=== PATIENT | male | born 1935 | race Caucasian/White ===

== ENCOUNTER 2017-08-31 17:17 | Inpatient (IN) | payer OTHER ==
[~2017-08-31] VITALS: Ht 162.6 cm; Wt 106.2 kg
[~2017-08-31 17:17] MED LIST: ALBUTEROL2.5 MG/0.5 INH/SOL; ALLOPURINOL300 M1 PO; CARVEDILOL12.5 M1 PO; COLCHICINE0.6 M2 PO; DIGOXIN125 MCG PO; FLOMAX0.4 M1 PO; LASIX20 M1 PO; LOSARTAN POTASS25 M1 PO; METFORMIN HCL500 M3 PO; OMEPRAZOLE20 M2 PO; SYMBICORT 16010.2 GM INH; TRAMADOL HCL50 M1 PO; WARFARIN SODIUM2 M1 PO
--- NOTE | 2017-08-31 17:32 | ED GENERAL ADULT ---
History of Present Illness General Chief Complaint: Dyspnea (COPD, CHF, Other) Stated Complaint: BIBA SOB/CP Source: patient, family, old records Exam Limitations: clinical condition Vital Signs & Intake/Output Vital Signs & Intake/Output Vital Signs Date Time Temp Pulse Resp B/P B/P Pulse O2 O2 Flow FiO2 Mean Ox Delivery Rate 08/31 1731 94 Nasal 4.0L Cannula 08/31 1728 70 22 130/70 96 Nasal 4.0L Cannula Allergies Coded Allergies: Iodinated Contrast- Oral and IV Dye (IODINATED CONTRAST MEDIA - ORAL AND) (HIVES , DYSPNEA 06/01/16) ampicillin (From UNASYN) (RASH 06/01/16) sulbactam (From UNASYN) (RASH 06/01/16) Reconcile Medications Albuterol Sulfate 2.5 MG/0.5 ML VIAL.NEB 1 Vial INH/DAVIDSON PRN COPD/ASTHMA ( Reported) Allopurinol 300 MG TABLET 1 TAB PO PRN GOUT (Reported) Amlodipine Besylate 5 MG TABLET 1 TAB PO QPM BP (Reported) Ascorbate Calcium (Vitamin C) 500 MG TABLET 1 TAB PO DAILY SUPPLEMENT ( Reported) Brimonidine Tartrate 0.2 % DROPS 2 DROP OU QPM GLAUCOMA (Reported) Budesonide/Formoterol Fumarate (Symbicort 160-4.5 Mcg Inhaler) (Unknown Strength ) HFA.AER.AD (Unknown Dose) INH PRN COPD/ASTHMA (Reported) Calcium (Elemental-Fr Calcarb) (Calcium Carbonate) (Unknown Strength) TABLET ( Unknown Dose) PO PRN GI (Reported) Carvedilol 12.5 MG TABLET 0.5 TAB PO BID HEART/BP (Reported) Cholecalciferol (Vitamin D3) (Vitamin D) 1,000 UNIT TABLET 1 TAB PO DAILY SUPPLEMENT (Reported) Colchicine 0.6 MG TABLET 1 TAB PO PRN GOUT (Reported) Cyanocobalamin (Vitamin B-12) 1,000 MCG TABLET 1 TAB PO DAILY SUPPLEMENT ( Reported) Digoxin 125 MCG TABLET 1 TAB PO Q48 HEART . Furosemide (Lasix) 20 MG TABLET 1 TAB PO DAILY CHF . Losartan Potassium 25 MG TABLET 1 TAB PO QAM BP (Reported) Lutein 20 MG CAPSULE 1 CAP PO DAILY SUPPLEMENT (Reported) Metformin HCl 500 MG TABLET 1 TAB PO BID DM (Reported) Mometasone/Formoterol (Dulera 100 Mcg/5 Mcg Inhaler) 100 MCG-5 MCG/ACTUATION HFA.AER.AD 1-2 PUF INH AD COPD/ASTHMA (Reported) Multiple Vitamin (Multivitamins) 1 EACH TABLET 1 TAB PO DAILY SUPPLEMENT ( Reported) Manawa-3 Fatty Acids (Manawa-3) 1,000 MG CAPSULE 1 CAP PO DAILY SUPPLEMENT ( Reported) Simvastatin (Simvastatin*) 40 MG TABLET 1 TAB PO QPM CHOLESTEROL (Reported) Tamsulosin HCl (Flomax) 0.4 MG CAP.ER.24H 1 CAP PO QPM PROSTATE (Reported) Timolol (Betimol) 0.5 % DROPS 1 GTT OU QPM GLAUCOMA (Reported) Tramadol HCl 50 MG TABLET 2 TAB PO Q6P PRN PAIN (Reported) Warfarin Sodium 4 MG TABLET 1 TAB PO Tuesday BLOOD THINNER ( Reported) Warfarin Sodium (Coumadin) 2 MG TABLET 1 TAB PO SUNTUTHURSAT BLOOD THINNER ( Reported) Triage Note: BIBA FROM HOME, REPORTS TO EMS THAT HE HAD SOB X 3 HOURS AND REPORTED MIDSTERNAL CHEST PAIN. PATIENT RECENTLY DIAGNOSED WITH CHF AND PRESCRIBED WATER PILL BUT HAS NOT TAKEN. PER EMS PATIENT WAS HYPERTENSIVE ON SCENE, 1 DOSE OF NITRO GIVEN EN ROUTE WITH RELIEF, 1 ALBUTEROL TREATMENT GIVEN EN ROUTE WITH RELIEF WELL. PATIENT TRANSFERRED TO ER MD SHREE MATHEW AT BEDSIDE. RESPIRATORY AT [facility] FOR EVAL. Triage Nurses Notes Reviewed? yes Onset: Abrupt Duration: hour(s): (FEW) Timing: single episode today Injury Environment: home Severity: moderate, severe No Modifying Factors: none Associated Symptoms: EPIGASTRIC DISCOMFORT HPI: This is an 82-year-old male with history of hypertension, CHF, A. fib on Eliquis , BiPAP use at night who presents by EMS from home for chief complaint of severe shortness of breath. Patient was found to be hypoxic and cyanotic with an oxygen saturation of 76% on room air. Patient states the symptoms started suddenly this afternoon. However the family notices that he had some lower sternum weeks swelling that had increased. On Tuesday [facility] told him he needed to be back on Lasix but hasn't gotten it yet. No fevers or chills. He does report some mild yellow sputum production in the last 2 days. Appetite has been normal. Patient denies any chest pain but had some epigastric heaviness. He was found hypotensive in the field with a blood pressure of 230/120. Patient was given a DuoNeb and a subungual nitroglycerin with relief. By the time he gets to the ER he states he is feeling much better. Past History Travel History Traveled to [place] past 21 day No Medical History Any Pertinent Medical History? see below for history Neurological: NONE EENT: glaucoma Cardiovascular: AFIB, hypertension, hyperlipidemia Respiratory: asthma Gastrointestinal: NONE Hepatic: NONE Renal: chronic kidney disease Musculoskeletal: gout, osteoarthritis Psychiatric: NONE Endocrine: diabetes Blood Disorders: NONE Cancer(s): NONE History of MRSA: No History of VRE: No History of CDIFF: No Surgical History Surgical History: non-contributory Psychosocial History Who do you live with Spouse Services at Home None What is your primary language Thai Tobacco Use: Quit >30 days ago ETOH Use: denies use Family History Hx Contributory? No Review of Systems Review of Systems Constitutional: Denies: chills, fever. EENTM: Reports: no symptoms. Respiratory: Reports: cough, short of breath, sputum production. Cardiovascular: Denies: chest pain, peripheral edema. GI: Reports: abdominal pain. Genitourinary: Reports: no symptoms. Musculoskeletal: Denies: back pain. Skin: Denies: rash. Neurological/Psychological: Denies: confusion. Hematologic/Endocrine: Denies: bruising, bleeding, polyuria, polydipsia. Immunologic/Allergic: Denies: splenectomy. All Other Systems: Reviewed and Negative Physical Exam Physical Exam General Appearance: well developed/nourished, alert, awake, anxious, moderate distress, severe distress Head: atraumatic, normal appearance Eyes: Bilateral: normal appearance, PERRL, EOMI. Ears, Nose, Throat: normal pharynx, hearing grossly normal Neck: normal inspection, supple, full range of motion Respiratory: decreased breath sounds, crackles (POSTERIOR BASES), wheezing ( upper gimenez), respiratory distress Cardiovascular: regular rate/rhythm, normal peripheral pulses, systolic murmur Peripheral Pulses: 2+ radial (R), 2+ radial (L) Gastrointestinal: normal bowel sounds, soft, non-tender, NONTENDER ON EXAMINATION Back: normal inspection Extremities: pedal edema (2+ BILATERALLY) Neurologic/Psych: no motor/sensory deficits, awake, alert Skin: pallor Core Measures ACS in differential dx? Yes CVA/TIA Diagnosis: No Sepsis Present: No Sepsis Focused Exam Completed? No Progress Differential Diagnoses I considered the following diagnoses in my evaluation of the patient: [AMI, CHF, FLASH PULMONARY EDEMA, PE, COPD, PNEUMONIA] Plan of Care: Orders Procedure Date/time Status US-EXT BILAT VENOUS DOPPLER 08/31 1852 Active ECHOCARDIOGRAM 08/31 1852 Active ED Holding Orders 08/31 1840 Active Admit to inpatient 08/31 1840 Active Vital Signs 08/31 1840 Active Code Status 08/31 1840 Active ARTERIAL BLOOD GAS (GEN) 08/31 174 Complete TROPONIN LEVEL 08/31 174 Complete PARTIAL THROMBOPLASTIN TIME 08/31 174 Complete PROTHROMBIN TIME 08/31 174 Complete COMPREHENSIVE METABOLIC PANEL 08/31 174 Complete CBC WITHOUT DIFFERENTIAL 09/01 1739 Complete B-TYPE NATRIURETIC PEP (BNP) 09/01 1739 Complete EKG 08/31 1717 Active Laboratory Tests 08/31/17 174: Anion Gap 12, Estimated GFR 45 L, BUN/Creatinine Ratio 22.0, Glucose 144 H, Calcium 9.4, Total Bilirubin 0.5, AST 24, ALT 27, Alkaline Phosphatase 122, Troponin I 0.03, Hoq-C-Nehuotvjgvw Pept 1870 H, Total Protein 7.1, Albumin 3.8, Globulin 3.3, Albumin/Globulin Ratio 1.2, PT 28.6 H, INR 2.60 H, APTT 45 H, CBC w Diff NO MAN DIFF REQ, RBC 5.19, MCV 89.3, MCH 28.8, MCHC 32.3 L, RDW 14.1 , MPV 9.8, Gran % 79.2 H, Lymphocytes % 10.3 L, Monocytes % 8.0, Eosinophils % 2.2, Basophils % 0.3, Absolute Granulocytes 11.3 H, Absolute Lymphocytes 1.5, Absolute Monocytes 1.1 H, Absolute Eosinophils 0.3, Absolute Basophils 0 08/31/171727: pH 7.32 L, pCO2 52 H, pO2 98, HCO3 28, ABG O2 Sat (Measured) 97.0, Carboxyhemoglobin 0.8 L, O2 Concentration % 4L, O2 Delivery Method NC, Phlebotomy Draw Site RIGHT RADIAL Discussed with Dr. Perez and Dr. Flower, will go to telemetry. Chest x-ray at this time pending. ABG does not show significant hypoxia. Recent echocardiogram shows significant aortic stenosis. Diagnostic Imaging: Viewed by Me: Radiology Read, Ultrasound. Discussed w/RAD: Radiology Read, Ultrasound. Radiology Impression: PATIENT: CHRISTINA MEYER PRESENT AGE: 82 PATIENT ACCOUNT NO: [id number] : 36 LOCATION: [facility] ORDERING PHYSICIAN: Taylor Wilburn MD SERVICE DATE: 08/31/17 EXAM TYPE: CARD - ECHOCARDIOGRAM CHRISTINA MEYER Age: 82 : 1935 Gender: M Exam Date: 08/31/2017 18:54 Exam Location: ER Ht (in): 64 Wt (lb): 247 BSA: 2.31 BP: 153 / 84 Ordering Physician: Taylor Wilburn Referring Physician: Taylor Wilburn Technologist: Moe Cristina RDCS Room Number: 10 Indications: CHEST PAIN Rhythm: Atrial fibrillation Technical Quality: technically difficult, Fair FINDINGS Left Ventricle Normal size left ventricle. Left ventricular wall thickness increased. Normal left ventricular ejection fraction estimated at 55-60%. Right Ventricle Right ventricle not well visualized. Right Atrium Right atrium not well visualized, grossly normal. Left Atrium Moderate left atrial dilatation. Mitral Valve Mild thickening/ calcification of the anterior mitral valve leaflet. Mitral annular calcification. Aortic Valve Diffuse thickening of the aortic valve cusps with reduced excursion. Severe aortic stenosis. Tricuspid Valve Tricuspid valve not well visualized. Pulmonic Valve Pulmonic valve not well visualized. Pericardium No pericardial effusion. Great Vessels Normal size aortic root and proximal ascending aorta. CONCLUSIONS 1. This was a technically difficult and limited examination due to the patient's body habitus and clinical status. 2. Significant fibrocalcific degeneration is present in the aortic valve with evidence of severe aortic stenosis (PG 36 mmHg; MG 24 mmHg; DERRICK 0.9 cm2). 3. Thickening and calcification of the mitral leaflets is present with mild to moderate anular calcification and moderate left atrial enlargement. 4. There is no significant pericardial fluid present 5. The left ventricular chamber size and systolic function are normal. Mild to moderate concentric LVH is present. Complete wall motion assessment was not possible due to the quality of the images obtained. 6. The right heart structures were not optimally assessed. The RV systolic could not be accurately assessed on this examination. Lissette Perez M.D. ( Electronically Signed) Final Date: 01 September 2017 13: 03 MEASUREMENTS (Male / Female) Normal Values 2D ECHO LV Diastolic Diameter PLAX 4.7 cm 4.2 - 5.9 / 3.9 - 5.3 cm LV Systolic Diameter PLAX 3.4 cm 2.1 - 4.0 cm LV Fractional Shortening PLAX 27.7 % 25 - 46 % LV Ejection Fraction 2D Teich 53.7 % IVS Diastolic Thickness 1.5 cm LVPW Diastolic Thickness 1.5 cm LV Relative Wall Thickness 0.6 LVOT Diameter 2.2 cm Aortic Root Diameter 2.4 cm LA Systolic Diameter LX 4.8 cm 3.0 - 4.0 / 2.7 - 3.8 cm LV Ejection Fraction MOD BP 67.3 % >= 55 % LV Cardiac Index MOD BP 2545.7 cm /min m LV Diastolic Length 4C 7.9 cm 6.9 - 10.3 cm LV Diastolic Area 4C 32.1 cm LV Diastolic Volume MOD 4C 107.0 cm LV Ejection Fraction MOD 4C 66.4 % LV Stroke Volume MOD 4C 71.0 cm LV Cardiac Index MOD 4C 2582.1 cm /min m LV Systolic Length 4C 6.3 cm LV Systolic Area 4C 16.3 cm LV Systolic Volume MOD 4C 36.0 cm LV Ejection Fraction MOD 2C 69.4 % LV Cardiac Index MOD 2C 2473.0 cm / min m LV Diastolic Volume 4C AL 111.0 cm 85 - 139 / 69 - 109 cm LV Systolic Volume 4C AL 36.0 cm LV Ejection Fraction 4C AL 67.6 % LV Stroke Volume 4C AL 75.0 cm LV Cardiac Index 4C AL 2727.2 cm / min m LV Ejection Fraction 2C AL 70.5 % LV Cardiac Index 2C AL 2573.7 cm /min m Ascending Aorta Diameter 3.2 cm DOPPLER AV Peak Velocity 299.0 cm/s AV Peak Gradient 35.8 mmHg AV Mean Velocity 228.0 cm/s AV Mean Gradient 24.0 mmHg AV Velocity Time Integral 73.7 cm LVOT Peak Velocity 82.0 cm/s LVOT Peak Gradient 2.7 mmHg LVOT Mean Velocity 44.0 cm/s LVOT Mean Gradient 1.0 mmHg LVOT Velocity Time Integral 14.5 cm LVOT Stroke Volume 55.1 cm LVOT Cardiac Index 2004.6 cm /min m AV Area Cont Eq vti 0.7 cm AV Area Cont Eq pk 1.0 cm Mitral E Point Velocity 131.0 cm/s MV Deceleration Time 289.0 ms PV Peak Velocity 65.2 cm/s PV Peak Gradient 1.7 mmHg DICTATED BY: Ankita Perez MD DATE/TIME DICTATED:09/01/171302 [facility] ATTENDANT:TESSA DATE/TIME TRANSCRIBED:09/01/171302 CONFIDENTIAL, DO NOT COPY WITHOUT APPROPRIATE AUTHORIZATION. <Electronically signed in Other Vendor System> SIGNED BY: Ankita Perez MD 09/01/171302 CXR Impression: PATIENT: CHRISTINA MEYER PRESENT AGE: 82 PATIENT ACCOUNT NO: [id number] : 36 LOCATION: [facility] ORDERING PHYSICIAN: Taylor Wilburn MD SERVICE DATE: 08/31/17 EXAM TYPE: RAD - XRY-PORTABLE CHEST XRAY EXAMINATION: XR PORTABLE CHEST CLINICAL INFORMATION: 82-year-old man with dyspnea. COMPARISON: 05/11/2017 chest radiograph TECHNIQUE: Portable frontal view of the chest was obtained. FINDINGS: There is persistent prominence of the central pulmonary vasculature that could reflect chronic pulmonary hypertension. No overt pulmonary edema or focal airspace consolidation is identified. Moderate cardiomegaly is unchanged. There are no large pleural effusions. There is persistent elevation of the right hemidiaphragm. IMPRESSION: No radiographic evidence of an acute cardiopulmonary process. DICTATED BY: Joanne Owen MD DATE/TIME DICTATED:08/31/171821 [facility] ATTENDANT:TESSA DATE/TIME TRANSCRIBED:08/31/171821 CONFIDENTIAL, DO NOT COPY WITHOUT APPROPRIATE AUTHORIZATION. <Electronically signed in Other Vendor System> SIGNED BY: Joanne Owen MD 08/31/171826 Initial ED EKG: AFIB, LAFB Prior EKG: unchanged Rhythm Strip: atrial fibrillation Departure Departure Disposition: STILL A PATIENT Condition: Stable Clinical Impression Primary Impression: Flash pulmonary edema Secondary Impressions: Dyspnea, Hypertensive urgency, malignant, Hypoxia Referrals: Quique Flower MD (PCP/Family) Departure Forms: Customer Survey General Discharge Information Prescriptions: Current Visit Scripts Digoxin 1 TAB PO Q48 #30 TAB . Furosemide (Lasix) 1 TAB PO DAILY #30 TAB . Admission Note Spoke With: Quique Flower MD Documentation of Exam: Documentation of any treatments & extenuating circumstances including Concerns Regarding Discharge (functional status, medication knowledge or non-compliance, living conditions, etc.) that warrant an admission rather than observation: [ TELE MONITOR, CAREFUL DIURESIS, SERIAL EKG/TROPONIN, CARDIOLOGY CONSULT DR PEREZ, ECHOCARDIOGRAM, IV STEROIDS] Critical Care Note Critical Care Note Critical Care Time: 30-74 min
[2017-08-31] MEDS ORDERED: SIMVASTATIN40 M1 PO (17:50)
[2017-08-31 17:51] LABS: ABSOLUTE BASOPHIL COUNT 0 /CUMM (0.0-0.2); ABSOLUTE EOSINOPHIL COUNT 0.3 /CUMM (0.0-0.7); ABSOLUTE GRANULOCYTE CT 11.3 /CUMM (1.4-6.5); ABSOLUTE LYMPH COUNT 1.5 /CUMM (1.2-3.4); ABSOLUTE MONOCYTE COUNT 1.1 /CUMM (0.10-0.60); BASOPHIL % 0.3 % (0.0-2.0); EOSINOPHIL % 2.2 % (0-5); GRANULOCYTE % 79.2 % (42.2-75.2); HEMATOCRIT 46.3 % (42-52); MEAN CORPUSCULAR HGB 28.8 PG (27.0-31.0); MEAN CORPUSCULAR HGB CONC 32.3 G/DL (33.0-37.0); MEAN CORPUSCULAR VOLUME 89.3 FL (80.0-94.0); MEAN PLATELET VOLUME 9.8 FL (7.4-10.4); PLATELET COUNT 195 /CUMM (130-400); RBC DISTRIBUTION WIDTH 14.1 % (11.5-14.5); RED BLOOD CELL CT 5.19 /CUMM (4.70-6.10); WHITE BLOOD CELL COUNT 14.3 /CUMM (4.8-10.8)
[2017-08-31] MEDS ORDERED: AMLODIPINE BESYL5 M1 PO (17:51)
[2017-08-31] MEDS ORDERED: BRIMONIDINE TART5 M2 OU (17:52)
[2017-08-31] MEDS ORDERED: BETIMOL5 M1 OU (17:52)
[2017-08-31 18:01] LABS: PT 28.6 SEC (9.4-12.5); PTT 45 SEC (25-37)
[2017-08-31] MEDS ORDERED: CALCIUM CARBON600 M1 PO (18:09)
[2017-08-31] MEDS ORDERED: VITAMIN B-121000 MC3 PO (18:10)
[2017-08-31] MEDS ORDERED: LUTEIN20 M3 PO (18:10)
[2017-08-31] MEDS ORDERED: VITAMIN C500 M6 PO (18:10)
[2017-08-31] MEDS ORDERED: OMEGA-31000 M1 PO (18:11)
[2017-08-31] MEDS ORDERED: VITAMIN D1000 UNIT PO (18:11)
[2017-08-31] MEDS ORDERED: MULTIVITAMINS1 EAC9 PO (18:11)
[2017-08-31] MEDS ORDERED: DULERA 100 MCG/13 GM INH (18:12)
[2017-08-31] MEDS ORDERED: COUMADIN2 M1 PO (18:15)
[2017-08-31] MEDS ORDERED: WARFARIN SODIUM4 M1 PO (18:15)
--- NOTE | 2017-08-31 18:27 | RADIOLOGY REPORT ---
EXAMINATION: XR PORTABLE CHEST CLINICAL INFORMATION: 82-year-old man with dyspnea. COMPARISON: 05/11/2017 chest radiograph TECHNIQUE: Portable frontal view of the chest was obtained. FINDINGS: There is persistent prominence of the central pulmonary vasculature that could reflect chronic pulmonary hypertension. No overt pulmonary edema or focal airspace consolidation is identified. Moderate cardiomegaly is unchanged. There are no large pleural effusions. There is persistent elevation of the right hemidiaphragm. IMPRESSION: No radiographic evidence of an acute cardiopulmonary process.
--- NOTE | 2017-08-31 19:26 | PN- Att Addend ---
Attending Addendum Attending Brief Note This is an 82-year-old male with history of hypertension, CHF, A. fib on anticoag, BiPAP use at night who presents by EMS from home for chief complaint of severe shortness of breath. Patient was found to be hypoxic and cyanotic with an oxygen saturation of 76% on room air. Patient states the symptoms started suddenly this afternoon. However the family notices that he had some lower sternum weeks swelling that had increased. On Tuesday he went to see a doctor at the [facility] who told him he needed to be back on Lasix but hasn't gotten it yet. No fevers or chills. He does report some mild yellow sputum production in the last 2 days. Appetite has been normal. Patient denies any chest pain but had some epigastric heaviness. He was found hypertensive in the field with a blood pressure of 230/120. Patient was given a DuoNeb and a subungual nitroglycerin with relief. By the time he gets to the ER he states he is feeling much better. PROB LIST Controlled type 2 diabetes mellitus with complication, without long-term current use of insulin (HC Code) Paroxysmal atrial fibrillation (HC Code) AFIA on CPAP Used [employer]/ AUTOPAP 4-18 cm h20 with mirage quattro full face mask medium PLMD (periodic limb movement disorder)/ Severe 99/hr with arousal due to plm at 99, total plm 765 during sleep study Non-ischemic cardiomyopathy cardiac cath, LVEF 40 RV 50/20 PCW 23 rt dominant 60 percent prox D! Essential hypertension Unilateral vocal cord paralysis Hyperlipidemia, unspecified hyperlipidemia type Nonrheumatic aortic (valve) stenosis Stenosis of carotid artery, unspecified laterality Gout Gastroesophageal reflux disease, esophagitis presence not specified Moderate persistent asthma, uncomplicated Pulmonary HTN Nontoxic multinodular goiter Benign prostatic hyperplasia Cholelithiases Other psoriasis Osteoarthritis of knee, unspecified laterality, unspecified osteoarthritis type Intervertebral disc disorders with radiculopathy, lumbosacral region Pedal edema Glaucoma Microscopic hematuria HOME MEDS amLODIPine (NORVASC) 5 MG tablet carvedilol (COREG) 12.5 MG tablet digoxin (LANOXIN) 0.125 MG tablet losartan (COZAAR) 25 MG tablet rOPINIRole (REQUIP) 2 MG tablet simvastatin (ZOCOR) 10 MG tablet furosemide (LASIX) 20 MG tablet Past History Travel History Traveled to [place] past 21 day No Medical History Any Pertinent Medical History? see below for history Neurological: NONE EENT: glaucoma Cardiovascular: AFIB, hypertension, hyperlipidemia Respiratory: asthma Gastrointestinal: NONE Hepatic: NONE Renal: chronic kidney disease Musculoskeletal: gout, osteoarthritis Psychiatric: NONE Endocrine: diabetes Blood Disorders: NONE Cancer(s): NONE History of MRSA: No History of VRE: No History of CDIFF: No Surgical History Surgical History: non-contributory Psychosocial History Who do you live with Spouse Services at Home None What is your primary language Telugu Tobacco Use: Quit >30 days ago ETOH Use: denies use ROS as above Constitutional Denies: chills, diaphoresis, fever, malaise. EENTM Denies: visual changes, throat pain. Respiratory Denies: cough, short of breath, sputum production. Cardiovascular Reports: chest pain. Denies: edema, palpitations. GI Reports: abdominal pain, melena. Denies: dysuria, frequency. Musculoskeletal Reports: joint pain (CHRONIC). Psych/Neuro Denies: numbness, weakness. Endocrine Denies: unexplained weight gain, unexplained weight loss. Vital Signs Date Time Temp Pulse Resp B/P B/P Pulse O2 O2 Flow FiO2 Mean Ox Delivery Rate 08/31 1731 94 Nasal 4.0L Cannula 08/31 1728 70 22 130/70 96 Nasal 4.0L Cannula Laboratory Tests 08/31/17 1742: Anion Gap 12, Estimated GFR 45 L, BUN/Creatinine Ratio 22.0, Glucose 144 H, Calcium 9.4, Total Bilirubin 0.5, AST 24, ALT 27, Alkaline Phosphatase 122, Troponin I 0.03, Cke-N-Exqnurzwzjv Pept 1870 H, Total Protein 7.1, Albumin 3.8, Globulin 3.3, Albumin/Globulin Ratio 1.2, PT 28.6 H, INR 2.60 H, APTT 45 H, CBC w Diff NO MAN DIFF REQ, RBC 5.19, MCV 89.3, MCH 28.8, MCHC 32.3 L, RDW 14.1 , MPV 9.8, Gran % 79.2 H, Lymphocytes % 10.3 L, Monocytes % 8.0, Eosinophils % 2.2, Basophils % 0.3, Absolute Granulocytes 11.3 H, Absolute Lymphocytes 1.5, Absolute Monocytes 1.1 H, Absolute Eosinophils 0.3, Absolute Basophils 0 08/31/171727: pH 7.32 L, pCO2 52 H, pO2 98, HCO3 28, ABG O2 Sat (Measured) 97.0, Carboxyhemoglobin 0.8 L, O2 Concentration % 4L, O2 Delivery Method NC, Phlebotomy Draw Site RIGHT RADIAL Orders Procedure Date/time Status Patient Data 08/31 1858 Active US-EXT BILAT VENOUS DOPPLER 08/31 1852 Active ECHOCARDIOGRAM 08/31 1852 Active ED Holding Orders 08/31 1840 Active Admit to inpatient 08/31 1840 Active Vital Signs 08/31 1840 Active Code Status 08/31 1840 Active ARTERIAL BLOOD GAS (GEN) 08/31 174 Complete TROPONIN LEVEL 09/01 1739 Complete PARTIAL THROMBOPLASTIN TIME 09/01 1739 Complete PROTHROMBIN TIME 09/01 1739 Complete COMPREHENSIVE METABOLIC PANEL 09/01 1739 Complete CBC WITHOUT DIFFERENTIAL 09/01 1739 Complete B-TYPE NATRIURETIC PEP (BNP) 09/01 1739 Complete EKG 08/31 1717 Active General Appearance Alert, Oriented X3, Cooperative, No Acute Distress Skin No Rashes HEENT Atraumatic, PERRLA, EOMI, Mucous Membr. moist/pink Neck Supple, No JVD, No thryomegaly, +2 Carotid Pulse wo Bruit Lymphatic Cervical nl Cardiovascular Normal S1, Normal S2, IRREGULAR RYTHM, SYSTOLIC MURMUR PRESENT LungsMild wheezing and crackles Normal Air Movement Abdomen Normal Bowel Sounds, Soft, No Tenderness, No Hepatospenomegaly, No Masses Neurological Normal Gait, Normal Speech, Strength at 5/5 X4 Ext, Normal Tone, Sensation Intact, Cranial Nerves 3-12 NL Extremities No Clubbing, No Cyanosis, 1 plus Edema, Normal Pulses IMPRESSION Pt with Nonischemic CM with reduced EF, PAFIB on anticoag ?eloquis, HTN, Hyperlipedemia, AFIA on cpap, Sig djd, Morbid obesity, COPD with sig asthmatic component, GERD with sig hiatal hernia, Ventral hernia, pvd, gout history, PLM, On and off abd discomfort, aortic stenosis mild to mod, Chronic hoarse voice with vc paralysis (well compensated with no sig aspiration) (idiopathic) now comes in with Lower left chest discomfort with acute dyspnea with hypoxia with elevated BNP with prob mild acute diastolic and systolic chf with Aortic stenosis Chronic hypercarbic resp insuff due to AFIA and copd now with acute hypercarbic and hypoxic resp failure, - improved PT does have mod persistant asthma with mild wheezing with no fever or sputum or cough Chest / abd pain upon admission now better CKD AFib on anticoag Aortic stenosis NICM with low ef with mild chf AFIA with pulm htn PEdal edema mild due to amlodapine Sig HTN at times with pulm edema when his bp is more than 180 VC paralysis chronic DM REC Admit Lasix IV BP control with amlodapine, coreg and cozaar low dose COnt warfarin lower ext doppler HOld metformin and fsg and sliding scale cont Other out pt meds Solumedrol 40 qd for now Nebs duo neb prn Symbicort bid 2 puff If pain persists will get abd ultrasound CPAP at hs pt to use his machine if not use CPAP at 10 ECHO Cardio eval Dig level Will follow closely
--- NOTE | 2017-08-31 20:20 | ULTRASOUND REPORT ---
EXAMINATION: US TRIPLEX OF LOWER EXTREMITIES, BILATERAL CLINICAL INFORMATION: 82-year-old man with bilateral leg pain and edema. COMPARISON: None TECHNIQUE: Color-flow triplex imaging with spectral analysis and compression Doppler were performed on the lower extremities. FINDINGS: Respiratory variation, normal compression and augmented flow are noted throughout the lower extremities. The visualized common femoral vein, superficial femoral vein, profunda femoral vein, popliteal vein and midcalf peroneal and posterior tibial venous segments show no evidence of deep venous thrombosis. There is no Melendez's cyst. IMPRESSION: Normal triplex scan without evidence of deep venous thrombosis involving the lower extremities.
--- NOTE | 2017-08-31 20:43 | History & Physical ---
Myranda CANTOR,[facility] 08/31/172042: General Information and HPI MD Statement: I have seen and personally examined CHRISTINA MEYER and documented this H&P. The patient is a 82 year old M who presented with a patient stated chief complaint of [Shortness of Breath]. Source of Information: patient, family Exam Limitations: no limitations History of Present Illness: Mr. Meyer is an 82-year-old gentleman with past medical history significant for atrial fibrillation, aortic stenosis, hypertension, hyperlipidemia, COPD on BiPAP at night, gout, osteoarthritis, diabetes and idiopathic cardiomyopathy who was brought in by EMS for severe shortness of breath. Patient's shortness of breath started around this afternoon. Also reports epigastric/mid sternal chest discomfort without any radiation, precipitating, aggravating or relieving factors. Also denies any palpitations. Patient has baseline orthopnea at night and sleeps with a BiPAP but endorses slight worsening of orthopnea, no PND. Family also noticed slight worsening of lower extremity edema. Patient saw Dr. Rodriguez 2 weeks ago and echocardiogram was done at that time showing severe aortic stenosis but mute not ready to be replaced. Patient has a primary care physician at [place], who restarted the patient on Lasix but the patient has not picked up the prescription yet (patient not sure why he was on Lasix in the past). Patient also reports worsening of cough with yellow colored sputum production for the past 2 days. Denies any sore throat, runny nose, fever/chills or sick contacts. He was treated with antibiotics for bronchitis almost a month ago. Patient was found to be hypertensive to 230/120 and hypoxic with O2 sats of 76% on room air per EMS. He was given 1 dose of nitroglycerin and DuoNeb. Allergies/Medications Allergies: Coded Allergies: Iodinated Contrast- Oral and IV Dye (IODINATED CONTRAST MEDIA - ORAL AND) (HIVES , DYSPNEA 06/01/16) ampicillin (From UNASYN) (RASH 06/01/16) sulbactam (From UNASYN) (RASH 06/01/16) Home Med list Albuterol Sulfate 2.5 MG/0.5 ML VIAL.NEB 1 Vial INH/DAVIDSON PRN COPD/ASTHMA ( Reported) Allopurinol 300 MG TABLET 1 TAB PO PRN GOUT (Reported) Amlodipine Besylate 5 MG TABLET 1 TAB PO QPM BP (Reported) Ascorbate Calcium (Vitamin C) 500 MG TABLET 1 TAB PO DAILY SUPPLEMENT ( Reported) Brimonidine Tartrate 0.2 % DROPS 2 DROP OU QPM GLAUCOMA (Reported) Budesonide/Formoterol Fumarate (Symbicort 160-4.5 Mcg Inhaler) (Unknown Strength ) HFA.AER.AD (Unknown Dose) INH PRN COPD/ASTHMA (Reported) Calcium (Elemental-Fr Calcarb) (Calcium Carbonate) (Unknown Strength) TABLET ( Unknown Dose) PO PRN GI (Reported) Carvedilol 12.5 MG TABLET 0.5 TAB PO BID HEART/BP (Reported) Cholecalciferol (Vitamin D3) (Vitamin D) 1,000 UNIT TABLET 1 TAB PO DAILY SUPPLEMENT (Reported) Colchicine 0.6 MG TABLET 1 TAB PO PRN GOUT (Reported) Cyanocobalamin (Vitamin B-12) 1,000 MCG TABLET 1 TAB PO DAILY SUPPLEMENT ( Reported) Digoxin 125 MCG TABLET 1 TAB PO QPM HEART (Reported) Furosemide (Lasix) (Unknown Strength) TABLET (Unknown Dose) PO 2XW DIURETIC ( Reported) Losartan Potassium 25 MG TABLET 1 TAB PO QAM BP (Reported) Lutein 20 MG CAPSULE 1 CAP PO DAILY SUPPLEMENT (Reported) Metformin HCl 500 MG TABLET 1 TAB PO BID DM (Reported) Mometasone/Formoterol (Dulera 100 Mcg/5 Mcg Inhaler) 100 MCG-5 MCG/ACTUATION HFA.AER.AD 1-2 PUF INH AD COPD/ASTHMA (Reported) Multiple Vitamin (Multivitamins) 1 EACH TABLET 1 TAB PO DAILY SUPPLEMENT ( Reported) [place]-3 Fatty Acids ([place]-3) 1,000 MG CAPSULE 1 CAP PO DAILY SUPPLEMENT ( Reported) Simvastatin (Simvastatin*) 40 MG TABLET 1 TAB PO QPM CHOLESTEROL (Reported) Tamsulosin HCl (Flomax) 0.4 MG CAP.ER.24H 1 CAP PO QPM PROSTATE (Reported) Timolol (Betimol) 0.5 % DROPS 1 GTT OU QPM GLAUCOMA (Reported) Tramadol HCl 50 MG TABLET 2 TAB PO Q6P PRN PAIN (Reported) Warfarin Sodium 4 MG TABLET 1 TAB PO Tuesday BLOOD THINNER ( Reported) Warfarin Sodium (Coumadin) 2 MG TABLET 1 TAB PO [place] BLOOD THINNER ( Reported) Past History Travel History Traveled to [place] past 21 day No Medical History Neurological: NONE EENT: glaucoma Cardiovascular: AFIB, cardiomyopathy, hypertension, hyperlipidemia Respiratory: COPD Gastrointestinal: NONE Hepatic: NONE Renal: chronic kidney disease Musculoskeletal: gout, osteoarthritis Psychiatric: NONE Endocrine: diabetes Blood Disorders: NONE Cancer(s): NONE History of MRSA: No History of VRE: No History of CDIFF: No Surgical History Surgical History: non-contributory Past Family/Social History Psychosocial History Where do you live? Home Who Do You Live With? spouse Services at Home: None Smoking Status: Former Smoker ETOH Use: denies use Illicit Drug Use: denies illicit drug use Functional Ability ADLs Independent: dressing, eating, toileting, bathing. Ambulation: cane Review of Systems Review of Systems Constitutional: Reports: no symptoms. EENTM: Reports: no symptoms. Cardiovascular: Reports: orthopena, peripheral edema. Respiratory: Reports: cough, short of breath, sputum production, wheezing. GI: Reports: no symptoms. Genitourinary: Reports: no symptoms. Musculoskeletal: Reports: no symptoms. Skin: Reports: no symptoms. Neurological/Psychological: Reports: no symptoms. Hematologic/Endocrine: Reports: no symptoms. Immunologic/Allergic: Reports: no symptoms. All Other Systems: Reviewed and Negative Exam & Diagnostic Data Last 24 Hrs of Vital Signs/I&O Vital Signs Date Time Temp Pulse Resp B/P B/P Pulse O2 O2 Flow FiO2 Mean Ox Delivery Rate 08/31 2245 60 94 08/31 2229 98.0 63 22 154/82 94 Nasal 3.0L Cannula 08/31 2029 Nasal 4.0L Cannula 08/31 194 Nasal 4.0L Cannula 08/31 1920 74 18 153/84 96 Nasal 4.0L Cannula 08/31 1731 94 Nasal 4.0L Cannula 08/31 1728 70 22 130/70 96 Nasal 4.0L Cannula Physical Exam General Appearance Alert, Oriented X3, Cooperative, No Acute Distress Skin No Rashes, No Breakdown Cardiovascular Regular Rate, Normal S1, Normal S2, Systolic Murmur Lungs Bilateral expiratory wheezing, Crackles on lung bases Abdomen Normal Bowel Sounds, Soft, No Tenderness Extremities No Clubbing, No Cyanosis, trace pedal edema Last 24 Hrs of Labs/Doc: Laboratory Tests 08/31/17 1742: Anion Gap 12, Estimated GFR 45 L, BUN/Creatinine Ratio 22.0, Glucose 144 H, Calcium 9.4, Total Bilirubin 0.5, AST 24, ALT 27, Alkaline Phosphatase 122, Troponin I 0.03, Pau-I-Xivklbvlwmm Pept 1870 H, Total Protein 7.1, Albumin 3.8, Globulin 3.3, Albumin/Globulin Ratio 1.2, PT 28.6 H, INR 2.60 H, APTT 45 H, CBC w Diff NO MAN DIFF REQ, RBC 5.19, MCV 89.3, MCH 28.8, MCHC 32.3 L, RDW 14.1 , MPV 9.8, Gran % 79.2 H, Lymphocytes % 10.3 L, Monocytes % 8.0, Eosinophils % 2.2, Basophils % 0.3, Absolute Granulocytes 11.3 H, Absolute Lymphocytes 1.5, Absolute Monocytes 1.1 H, Absolute Eosinophils 0.3, Absolute Basophils 0, Digoxin 1.3 08/31/17 1728: pH 7.32 L, pCO2 52 H, pO2 98, HCO3 28, ABG O2 Sat (Measured) 97.0, Carboxyhemoglobin 0.8 L, O2 Concentration % 4L, O2 Delivery Method NC, Phlebotomy Draw Site RIGHT RADIAL Diagnostic Data CXR Results FINDINGS: There is persistent prominence of the central pulmonary vasculature that could reflect chronic pulmonary hypertension. No overt pulmonary edema or focal airspace consolidation is identified. Moderate cardiomegaly is unchanged. There are no large pleural effusions. There is persistent elevation of the right hemidiaphragm. IMPRESSION: No radiographic evidence of an acute cardiopulmonary process. Other Results US-EXT BILAT VENOUS DOPPLER IMPRESSION: Normal triplex scan without evidence of deep venous thrombosis involving the lower extremities. Assessment/Plan Assessment: Mr. Meyer is an 82-year-old gentleman with past medical history significant for atrial fibrillation, aortic stenosis, hypertension, hyperlipidemia, PVD, COPD, AFIA on CPAP at night, gout, osteoarthritis, diabetes and idiopathic cardiomyopathy who was brought in by EMS for severe shortness of breath. Problrm List 1. ?? CHF - shortness of breath, lower extremity edema, crackles on examination, and elevated proBNP(1870) but no JVD and chest x-ray does not show any signs of fluid overload. Shortness of breath could be multifactorial from AFIA, COPD, and Pulmonary HTN. Lower extremity edema could be secondary to PVD. 2. Aortic Stenosis 3. COPD Exacerbation 4. AFIA on CPAP at night 5. PVD 6. Chronic medical conditions - We'll let the patient to telemetry floor - Start the patient on IV Lasix 20 daily - Strict ins and outs - Daily weights - Troponin and EKG 3 to rule out ACS - Echocardiogram - Cardiology consult - Bilateral lower extremity Doppler negative for DVT. - IV Solu-Medrol 40 mg every 6. - TRC nebs - Supplemental oxygen as needed - Continue CPAP at night patient is a 40 - Continue home medications. DVT prophylaxis; on warfarin Patient is full code As Ranked By This Provider Problem List: 1. COPD 2. Dyspnea Core Measures/Misc (02/27) Acute Coronary Syndrome ACS Diagnosis: No Congestive Heart Failure Congestive Heart Failure Diagnosis Yes Cerebrovascular Accident CVA/TIA Diagnosis: No VTE (View Protocol) VTE Risk Factors Age>40 No Mechanical VTE Prophylaxis d/t N/A MechProphylax Ordered No VTE Pharm Prophylaxis d/t NA PharmProphylax ordered Sepsis (View protocol) Sepsis Present: No Jeffrey Hernandez 09/01/17 0002: Resident Review Statement Resident Statement: examined this patient, discussed with sourcing internship, agreed with sourcing internship, discussed with family, reviewed EMR data (avail), discussed with nursing , discussed with case mgmt, reviewed images, amended to note Other Findings: This is a 82-year-old male with past medical history significant for paroxysmal atrial fibrillation on digoxin, Coumadin, hypertension, hyperlipidemia, chronic kidney disease, gout, osteoarthritis, COPD, asthma, not on home oxygen, recently diagnosed ? CHF planning to start Lasix for worsening lower extremity swelling, type 2 diabetes mellitus, BPH, obstructive sleep apnea, using CPAP, nonischemic cardiomyopathy, carotid artery stenosis, GERD, pulmonary hypertension, nontoxic goiter presented to the emergency department for worsening shortness of breath for few hours. Patient reports that he has worsening shortness of breath for few hours before presenting to the emergency department. Also reports chest tightness and heaviness,with no chest pain, no radiation, no nausea, vomiting, sweating, diaphoresis. Patient has COPD, asthma, pulmonary hypertension, AFIA at baseline. He has shortness of breath on exertion is his baseline. However with worsening shortness of breath at rest he decided to come to the emergency room for further evaluation. He denies any fever, chills however he reports productive cough for last few days. He followed up with PCP Dr. Flower and Dr. Rodriguez last week, planning to start oral Lasix 20 daily for worsening lower extremity swelling. He was found to be hypoxic 76% on room air in the emergency room. He denies any sick contact exposure, travel history Patient denied any chest pain in the ER, palpitations, fever, chills, nausea, vomiting, abdominal pain, change in bladder or bowel habits, orthopnea, paroxysmal nocturnal dyspnea. He has remote history of smoking, quit 30 years ago, denies alcohol abuse, illicit drug abuse. ---- Vitals Afebrile, heart rate 74, respiratory rate 18, blood pressure 152/84, saturating at 96 on room air General Appearance Alert, Oriented X3, Cooperative, No Acute Distress Cardiovascular Regular Rate, Normal S1, Normal S2, Systolic Murmur Lungs Bilateral expiratory wheezing, Crackles on lung bases Abdomen Normal Bowel Sounds, Soft, No Tenderness Extremities No Clubbing, No Cyanosis, +1 pedal edema Labs Leukocytosis 14.3, hemoglobin 15, hematocrit 46, platelets 195 BUN 33 and creatinine 1.5 Chest x-ray no acute cardiopulmonary findings LFT and troponin neg 1. Acute on chronic respiratory insufficiency from COPD exacerbation, AFIA Patient presented with worsening shortness of breath, productive cough for a few days. He is tachypneic and hypoxic in the ER requiring 4 L oxygen supplementation. Chest x-ray no findings of pneumonia. However given his worsening shortness of breath and productive cough will manage him for COPD exacerbation. * Admit to telemetry * Continuous compliance monitor * Monitor vitals every shift * Provide supplemental oxygen * Continue CPAP at nighttime * Monitor for fever, leukocytosis trend * Received monitor blood 125 in the ER * Continue Solu-Medrol 40 daily * TRC nebs * Symbicort 2 puffs daily * Follow-up sputum cultures 2. Bilateral lower extremity swelling/questionable CHF Patient reports that he was evaluated by his PCP for bilateral lower extremity swelling. they were planning to start Lasix 20 mg daily. He has no JVD on exam. ProBNP elevated 1870. cxr unremarkable. * IV Lasix 20 daily for now * Ins and outs * Daily weights * cardio consult * Follow-up echocardiogram * Serial troponin and EKG-rule out ACS given his chest tightness * Monitor BUN, creatinine * Lower extremity Doppler was done given his bilateral lower extremity swelling and pain-ruled out deep vein thrombosis AFIA continue CPAP A. fib continue digoxin 125 g and warfarin daily based on INR Diabetes mellitus insulin sliding scale ordered. hold metformin Hypertension continue amlodipine, carvedilol, losartan Hyperlipidemia continue simvastatin Chronic kidney disease with creatinine 1.5 stable Gout continue allopurinol and colchicine BPH continue tamsulosin Patient is full code Regular diet DVT prophylaxis Coumadin
[2017-08-31 22:29] VITALS: BP 154/82
[2017-09-01 06:34] VITALS: BP 164/90
[2017-09-01 08:20] LABS: PT 32.5 SEC (9.4-12.5)
[2017-09-01 08:35] LABS: ABSOLUTE BASOPHIL COUNT 0 /CUMM (0.0-0.2); ABSOLUTE EOSINOPHIL COUNT 0 /CUMM (0.0-0.7); ABSOLUTE GRANULOCYTE CT 9.2 /CUMM (1.4-6.5); ABSOLUTE LYMPH COUNT 0.6 /CUMM (1.2-3.4); ABSOLUTE MONOCYTE COUNT 0.1 /CUMM (0.10-0.60); BASOPHIL % 0.1 % (0.0-2.0); EOSINOPHIL % 0 % (0-5); HEMATOCRIT 42.2 % (42-52); MEAN CORPUSCULAR HGB 29.1 PG (27.0-31.0); MEAN CORPUSCULAR HGB CONC 32.8 G/DL (33.0-37.0); MEAN CORPUSCULAR VOLUME 88.7 FL (80.0-94.0); MEAN PLATELET VOLUME 10.4 FL (7.4-10.4); PLATELET COUNT 173 /CUMM (130-400); RED BLOOD CELL CT 4.76 /CUMM (4.70-6.10); WHITE BLOOD CELL COUNT 9.9 /CUMM (4.8-10.8)
--- NOTE | 2017-09-01 10:27 | PN- Housestaff ---
Subjective Follow-up For: 1. ?? CHF - 2. Aortic Stenosis 3. COPD Exacerbation 4. AFIA on CPAP at night 5. PVD 6. Chronic medical conditions Tele-Events Since Last Visit: Normal sinus rhythm, 8796, QRS 0.1, KS 0.18, patient had 12 beats of V. tach, converted to NSR Subjective: Patient was seen and examined at bedside, he denies any shortness of breath, chest pain, nausea, vomiting, diarrhea or constipation Review of Systems Constitutional: Reports: see HPI. Objective Last 24 Hrs of Vital Signs/I&O Vital Signs Date Time Temp Pulse Resp B/P B/P Pulse O2 O2 Flow FiO2 Mean Ox Delivery Rate 09/01 1033 93 Nasal 3.0L Cannula 09/01 0900 64 164/90 09/01 0858 64 164/90 09/01 0846 Nasal 3.0L Cannula 09/01 0800 97 Nasal 4.0L Cannula 09/01 0634 97.6 66 20 164/90 95 Nasal Cannula 09/01 0049 56 96 09/01 0000 CPAP 08/31 2245 60 94 08/31 2229 98.0 63 22 154/82 94 Nasal 3.0L Cannula 08/31 2030 Nasal 4.0L Cannula 08/31 1941 Nasal 4.0L Cannula 08/31 1920 74 18 153/84 96 Nasal 4.0L Cannula 08/31 1731 94 Nasal 4.0L Cannula 08/31 1728 70 22 130/70 96 Nasal 4.0L Cannula Intake & Output 09/01 1600 09/01 0800 09/01 0000 Intake Total 240 350 Output Total 500 700 Balance -260 -350 Intake, Oral 240 350 Number 0 Bowel Movements Output, Urine 500 700 Patient 234 lb Weight Weight Bed scale Measurement Method Physical Exam General Appearance: Alert, Oriented X3, Cooperative, No Acute Distress HEENT: Atraumatic, PERRLA, EOMI, Mucous Membr. moist/pink Neck: Supple Cardiovascular: Normal S1, Normal S2, No Murmurs Lungs: Clear to Auscultation, Normal Air Movement Abdomen: Normal Bowel Sounds, Soft, No Tenderness Neurological: Normal Speech, Strength at 5/5 X4 Ext, Normal Tone, Sensation Intact Extremities: BILATERAL 2 + PITTING EDEMA Assessment/Plan Assessment: 82-year-old male with past medical history significant for paroxysmal atrial fibrillation on digoxin, Coumadin, hypertension, hyperlipidemia, chronic kidney disease, gout, osteoarthritis, COPD, asthma, not on home oxygen, recently diagnosed ? CHF planning to start Lasix for worsening lower extremity swelling, type 2 diabetes mellitus, BPH, obstructive sleep apnea, using CPAP, nonischemic cardiomyopathy, carotid artery stenosis, GERD, pulmonary hypertension, nontoxic goiter presented to the emergency department for worsening shortness of breath for few hours. 1. Acute on chronic respiratory insufficiency from COPD exacerbation, AFIA Patient presented with worsening shortness of breath, productive cough for a few days. He is tachypneic and hypoxic in the ER requiring 4 L oxygen supplementation. Chest x-ray no findings of pneumonia. However given his worsening shortness of breath and productive cough will manage him for COPD exacerbation. * Continue to monitor on telemetry * Continuous playground monitor * Monitor vitals every shift * Provide supplemental oxygen * Continue CPAP at nighttime * Monitor for fever, leukocytosis trend * Continue Solu-Medrol 40 daily * TRC nebs * Symbicort 2 puffs daily * Follow-up sputum cultures 2. Bilateral lower extremity swelling/questionable CHF Patient reports that he was evaluated by his PCP for bilateral lower extremity swelling. they were planning to start Lasix 20 mg daily. He has no JVD on exam. ProBNP elevated 1870. cxr unremarkable. * IV Lasix 20 daily * Ins and outs * Daily weights * cardio consult * Follow-up echocardiogram * Serial troponin and EKG-ruled out ACS * Monitor BUN, creatinine * Lower extremity Doppler was done given his bilateral lower extremity swelling and pain-ruled out deep vein thrombosis AFIA continue CPAP A. fib continue digoxin 125 g and warfarin daily based on INR, patient usually takes Coumadin 4 mg on Tuesday, Tuesday, Tuesday, and 2 mg on Tuesday, Tuesday, , Tuesday Diabetes mellitus insulin sliding scale ordered. hold metformin Hypertension continue amlodipine, carvedilol, losartan Hyperlipidemia continue simvastatin Chronic kidney disease with creatinine 1.5 stable Gout continue allopurinol and colchicine BPH continue tamsulosin Patient is full code Regular diet DVT prophylaxis Coumadin Problem List: 1. CHF (congestive heart failure) 2. Dyspnea 3. ATRIAL FIBRILATION Pain Ratin Pain Location: N/A Pain Goal: Remain pain free Pain Plan: PATHWAY Tomorrow's Labs & Rationales: CBC BEP INR
--- NOTE | 2017-09-01 12:29 | Cons- Cardiology ---
General Information and HPI Consulting Request Date of Consult: 09/01/17 Requested By: Mundo CANTOR,Quique Enriquez Reason for Consult: Heart failure History of Present Illness: The patient is an 82-year-old male with history of atrial fibrillation, aortic stenosis, hypertension, and COPD who is admitted for shortness of breath. The shortness of breath began suddenly yesterday. He also noted he was substernal and epigastric chest discomfort on presentation which has resolved. He was found to be hypoxic and cyanotic with oxygen saturation of 76% on room air. He had an echocardiogram [address] Rodriguez which showed severe aortic stenosis. On Tuesday he saw a physician at the [facility] and was advised to restart Lasix, however he has not yet started it. He notes mild sputum production. He notes mild epigastric discomfort. He was treated with antibiotics for bronchitis 1 month ago. He was noted to have severely elevated blood pressure of 230/120 on presentation. He reports feeling significantly improved today compared to yesterday. Allergies/Medications Allergies: Coded Allergies: Iodinated Contrast- Oral and IV Dye (IODINATED CONTRAST MEDIA - ORAL AND) (HIVES , DYSPNEA 06/01/16) ampicillin (From UNASYN) (RASH 06/01/16) sulbactam (From UNASYN) (RASH 06/01/16) Home Med List: Albuterol Sulfate 2.5 MG/0.5 ML VIAL.NEB 1 Vial INH/DAVIDSON PRN COPD/ASTHMA ( Reported) Allopurinol 300 MG TABLET 1 TAB PO PRN GOUT (Reported) Amlodipine Besylate 5 MG TABLET 1 TAB PO QPM BP (Reported) Ascorbate Calcium (Vitamin C) 500 MG TABLET 1 TAB PO DAILY SUPPLEMENT ( Reported) Brimonidine Tartrate 0.2 % DROPS 2 DROP OU QPM GLAUCOMA (Reported) Budesonide/Formoterol Fumarate (Symbicort 160-4.5 Mcg Inhaler) (Unknown Strength ) HFA.AER.AD (Unknown Dose) INH PRN COPD/ASTHMA (Reported) Calcium (Elemental-Fr Calcarb) (Calcium Carbonate) (Unknown Strength) TABLET ( Unknown Dose) PO PRN GI (Reported) Carvedilol 12.5 MG TABLET 0.5 TAB PO BID HEART/BP (Reported) Cholecalciferol (Vitamin D3) (Vitamin D) 1,000 UNIT TABLET 1 TAB PO DAILY SUPPLEMENT (Reported) Colchicine 0.6 MG TABLET 1 TAB PO PRN GOUT (Reported) Cyanocobalamin (Vitamin B-12) 1,000 MCG TABLET 1 TAB PO DAILY SUPPLEMENT ( Reported) Digoxin 125 MCG TABLET 1 TAB PO QPM HEART (Reported) Furosemide (Lasix) (Unknown Strength) TABLET (Unknown Dose) PO 2XW DIURETIC ( Reported) Losartan Potassium 25 MG TABLET 1 TAB PO QAM BP (Reported) Lutein 20 MG CAPSULE 1 CAP PO DAILY SUPPLEMENT (Reported) Metformin HCl 500 MG TABLET 1 TAB PO BID DM (Reported) Mometasone/Formoterol (Dulera 100 Mcg/5 Mcg Inhaler) 100 MCG-5 MCG/ACTUATION HFA.AER.AD 1-2 PUF INH AD COPD/ASTHMA (Reported) Multiple Vitamin (Multivitamins) 1 EACH TABLET 1 TAB PO DAILY SUPPLEMENT ( Reported) [place]-3 Fatty Acids ([place]-3) 1,000 MG CAPSULE 1 CAP PO DAILY SUPPLEMENT ( Reported) Simvastatin (Simvastatin*) 40 MG TABLET 1 TAB PO QPM CHOLESTEROL (Reported) Tamsulosin HCl (Flomax) 0.4 MG CAP.ER.24H 1 CAP PO QPM PROSTATE (Reported) Timolol (Betimol) 0.5 % DROPS 1 GTT OU QPM GLAUCOMA (Reported) Tramadol HCl 50 MG TABLET 2 TAB PO Q6P PRN PAIN (Reported) Warfarin Sodium 4 MG TABLET 1 TAB PO Tuesday BLOOD THINNER ( Reported) Warfarin Sodium (Coumadin) 2 MG TABLET 1 TAB PO [facility] B[facility] ( Reported) Current Medications: Current Medications Sig/Peace Start time Last Medication Dose Route Stop Time Status Admin Acetaminophen 650 MG Q6P PRN 08/31 2199 AC PO Albuterol Sulfate 3 ML Q4P PRN 09/01 1100 AC INH Albuterol Sulfate 3 ML Q6P PRN 08/315 DC INH Allopurinol 300 MG DAILY 09/01 1000 AC 09/01 PO 0858 Amlodipine Besylate 5 MG QPM 09/01 2199 AC PO Atorvastatin Calcium 40 MG 1700 09/01 1700 AC 09/01 PO 1744 Brimonidine Tartrate 1 GTT QPM 09/01 2199 AC OPH Budesonide/ 2 PUF BID 09/01 1000 AC 09/01 Formoterol Fumarate INH 0859 Carvedilol 6.25 MG BID 09/01 2199 AC PO Carvedilol 6.25 MG BID 09/01 1000 DC 09/01 PO 0900 Colchicine 600 MCG DAILY 09/01 1000 AC 09/01 PO 0857 Digoxin 0.125 MG QPM 09/01 2200 CAN PO Furosemide 20 MG DAILY 09/01 1000 AC 09/01 IV 0858 Insulin Aspart 0 TIDAC 08/31 2230 AC 09/01 SC 1744 Ipratropium [place] 2.5 ML Q4P PRN 09/01 1100 AC INH Losartan Potassium 25 MG QAM 09/01 1000 AC 09/01 PO 0858 Methylprednisolone 40 MG DAILY 09/01 1000 DC 09/01 IV 0858 Patient Medication 1 ED ONE ONE 09/01 1245 DC Teaching ED 09/01 1246 Tamsulosin HCl 0.4 MG QPM 09/01 2200 AC PO Timolol Maleate 1 GTT BID 08/31 2215 AC 09/01 OPH 0858 Tramadol HCl 100 MG Q6P PRN 08/31 2215 AC PO Warfarin Sodium 2 MG COUMADIN 1700 ONE 09/01 1700 DC 09/01 PO 09/01 1701 1743 Review of Systems Review of Systems: No rash. No tremor. No hemoptysis. No hematemesis. All other systems were reviewed, and were noted to be negative. Past History Travel History Traveled to [place] past 21 day No Medical History Blood Transfusion Hx: No Neurological: NONE EENT: glaucoma Cardiovascular: AFIB, cardiomyopathy, hypertension, hyperlipidemia Respiratory: COPD Gastrointestinal: NONE Hepatic: NONE Renal: chronic kidney disease Musculoskeletal: gout, osteoarthritis Psychiatric: NONE Endocrine: diabetes Blood Disorders: NONE Cancer(s): NONE MANAGER LIGHTING/Reproductive: NONE Surgical History Surgical History: non-contributory Family History Relations & Conditions If Any: FATHER Coronary artery disease MOTHER Coronary artery disease Psychosocial History Where Do You Live? Home Who Do You Live With? spouse Services at Home: None Smoking Status: Former Smoker ETOH Use: denies use Illicit Drug Use: denies illicit drug use Functional Ability ADLs Independent: dressing, eating, toileting, bathing. Ambulation: cane Exam & Diagnostic Data Vital Signs and I&O Vital Signs Date Time Temp Pulse Resp B/P B/P Pulse O2 O2 Flow FiO2 Mean Ox Delivery Rate 09/01 1438 97.5 54 18 138/74 98 09/01 1033 93 Nasal 3.0L Cannula 09/01 0900 64 164/90 09/01 0858 64 164/90 09/01 0846 Nasal 3.0L Cannula 09/01 0800 97 Nasal 4.0L Cannula 09/01 0634 97.6 66 20 164/90 95 Nasal Cannula 09/01 0049 56 96 09/01 0000 CPAP 08/31 2245 60 94 08/31 2229 98.0 63 22 154/82 94 Nasal 3.0L Cannula 08/31 2030 Nasal 4.0L Cannula Intake & Output 09/01 1600 09/01 0800 09/01 0000 08/31 1600 08/31 0800 08/31 0000 Intake Total 420 240 350 Output Total 650 500 700 Balance -230 -260 -350 Intake, IV 20 Intake, Oral 400 240 350 Number 0 Bowel Movements Output, Urine 650 500 700 Patient 234 lb Weight Weight Bed scale Measurement Method Physical Exam: Gen: The patient is in no acute distress HEENT: Normal nose, ears, and oropharynx. Pupils equal bilaterally. Conjunctiva normal. Neck: Supple with no JVD, no masses, and no thyromegaly Lungs: Bilateral rales with normal respiratory effort Heart: S1, S2, 2/6 systolic murmur. 1+ peripheral edema, 2+ pulses in the lower extremities bilaterally Abdomen: Soft, nontender, no masses. No hepatomegaly. No splenomegaly Extremities: No clubbing or cyanosis. Normal muscle strength in the upper and lower extremities Skin: Normal skin turgor with no skin ulcers or lesions noted. Neuro: Cranial nerves intact. Sensation intact Psych: Alert and oriented x 3 with appropriate affect Labs/Doc Results: Laboratory Tests 09/01 09/01 09/01 1302 0632 0030 Chemistry Sodium (137 - 145 mmol/L) Cancelled 143 Potassium (3.5 - 5.1 mmol/L) Cancelled 4.6 Chloride (98 - 107 mmol/L) Cancelled 99 Carbon Dioxide (22 - 30 mmol/L) Cancelled 28 Anion Gap (5 - 16) Cancelled 16 BUN (9 - 20 mg/dL) Cancelled 33 H Creatinine (0.7 - 1.2 mg/dL) Cancelled 1.5 H Estimated GFR (>60 ml/min) 45 L BUN/Creatinine Ratio (7 - 25 %) Cancelled 22.0 Phosphorus (2.5 - 4.5 mg/dL) 4.0 Magnesium (1.6 - 2.3 mg/dL) 1.4 L Troponin I (<0.11 ng/ml) 0.04 0.04 Coagulation PT (9.4 - 12.5 SEC) 32.5 H INR (0.90 - 1.17) 2.95 H Hematology CBC w Diff NO MAN DIFF REQ WBC (4.8 - 10.8 /CUMM) 9.9 RBC (4.70 - 6.10 /CUMM) 4.76 Hgb (14.0 - 18.0 G/DL) 13.8 L Hct (42 - 52 %) 42.2 MCV (80.0 - 94.0 FL) 88.7 MCH (27.0 - 31.0 PG) 29.1 MCHC (33.0 - 37.0 G/DL) 32.8 L RDW (11.5 - 14.5 %) 14.0 Plt Count (130 - 400 /CUMM) 173 MPV (7.4 - 10.4 FL) 10.4 Gran % (42.2 - 75.2 %) 93.0 H Lymphocytes % (20.5 - 51.1 %) 6.4 L Monocytes % (1.7 - 9.3 %) 0.5 L Eosinophils % (0 - 5 %) 0 Basophils % (0.0 - 2.0 %) 0.1 Absolute Granulocytes (1.4 - 6.5 /CUMM) 9.2 H Absolute Lymphocytes (1.2 - 3.4 /CUMM) 0.6 L Absolute Monocytes (0.10 - 0.60 /CUMM) 0.1 Absolute Eosinophils (0.0 - 0.7 /CUMM) 0 Absolute Basophils (0.0 - 0.2 /CUMM) 0 08/31 08/31 1742 1728 Blood Gas pH (7.35 - 7.45 PH) 7.32 L pCO2 (35 - 45 TORR) 52 H pO2 (80 - 100 TORR) 98 HCO3 (21 - 28 MEQ/L) 28 ABG O2 Sat (Measured) (>96.0 %) 97.0 Carboxyhemoglobin (1.5 - 5.0 %) 0.8 L O2 Concentration % 4L O2 Delivery Method NC Chemistry Sodium (137 - 145 mmol/L) 141 Potassium (3.5 - 5.1 mmol/L) 4.3 Chloride (98 - 107 mmol/L) 98 Carbon Dioxide (22 - 30 mmol/L) 31 H Anion Gap (5 - 16) 12 BUN (9 - 20 mg/dL) 33 H Creatinine (0.7 - 1.2 mg/dL) 1.5 H Estimated GFR (>60 ml/min) 45 L BUN/Creatinine Ratio (7 - 25 %) 22.0 Glucose (65 - 99 mg/dL) 144 H Calcium (8.4 - 10.2 mg/dL) 9.4 Total Bilirubin (0.2 - 1.3 mg/dL) 0.5 AST (17 - 59 U/L) 24 ALT (21 - 72 U/L) 27 Alkaline Phosphatase (< 127 U/L) 122 Troponin I (<0.11 ng/ml) 0.03 Tvp-P-[id number] Pept (<125 pg/mL) 1870 H Total Protein (6.3 - 8.2 g/dL) 7.1 Albumin (3.5 - 5.0 g/dL) 3.8 Globulin (1.9 - 4.2 gm/dL) 3.3 Albumin/Globulin Ratio (1.1 - 2.2 %) 1.2 Coagulation PT (9.4 - 12.5 SEC) 28.6 H INR (0.90 - 1.17) 2.60 H APTT (25 - 37 SEC) 45 H Hematology CBC w Diff NO MAN DIFF REQ WBC (4.8 - 10.8 /CUMM) 14.3 H RBC (4.70 - 6.10 /CUMM) 5.19 Hgb (14.0 - 18.0 G/DL) 15.0 Hct (42 - 52 %) 46.3 MCV (80.0 - 94.0 FL) 89.3 MCH (27.0 - 31.0 PG) 28.8 MCHC (33.0 - 37.0 G/DL) 32.3 L RDW (11.5 - 14.5 %) 14.1 Plt Count (130 - 400 /CUMM) 195 MPV (7.4 - 10.4 FL) 9.8 Gran % (42.2 - 75.2 %) 79.2 H Lymphocytes % (20.5 - 51.1 %) 10.3 L Monocytes % (1.7 - 9.3 %) 8.0 Eosinophils % (0 - 5 %) 2.2 Basophils % (0.0 - 2.0 %) 0.3 Absolute Granulocytes (1.4 - 6.5 /CUMM) 11.3 H Absolute Lymphocytes (1.2 - 3.4 /CUMM) 1.5 Absolute Monocytes (0.10 - 0.60 /CUMM) 1.1 H Absolute Eosinophils (0.0 - 0.7 /CUMM) 0.3 Absolute Basophils (0.0 - 0.2 /CUMM) 0 Miscellaneous Phlebotomy Draw Site RIGHT RADIAL Toxicology Digoxin (0.8 - 2.0 ng/mL) 1.3 Diagnostic Data EKG Results EKG tracings have been reviewed, and reveals atrial fibrillation with ventricular response of 61, left anterior fascicular block, poor R-wave progression CXR Results No radiographic evidence of an acute cardiopulmonary process. Other Results Lower extremity Doppler study: Normal triplex scan without evidence of deep venous thrombosis involving the lower extremities. Echocardiogram 09/01/17: 1. This was a technically difficult and limited examination due to the patient's body habitus and clinical status. 2. Significant fibrocalcific degeneration is present in the aortic valve with evidence of severe aortic stenosis (PG 36 mmHg; MG 24 mmHg; DERRICK 0.9 cm2). 3. Thickening and calcification of the mitral leaflets is present with mild to moderate anular calcification and moderate left atrial enlargement. 4. There is no significant pericardial fluid present 5. The left ventricular chamber size and systolic function are normal. Mild to moderate concentric LVH is present. Complete wall motion assessment was not possible due to the quality of the images obtained. 6. The right heart structures were not optimally assessed. The RV systolic could not be accurately assessed on this examination. Assessment/Plan Assessment/Plan Assessment: 1. Hypertension 2. Atrial fibrillation 3. Severe aortic stenosis 4. Acute COPD exacerbation 5. Possible acute on chronic diastolic heart failure exacerbation Recommendations: * With diuresis with Lasix 20 mg IV every 12 hours * Monitor input and output with daily weights * Treatment for COPD as per pulmonary * Continue other cardiac medications Consult Acknowledgment - Thank you for your consult request.
--- NOTE | 2017-09-01 13:03 | ECHOCARDIOGRAM REPORT ---
CHRISTINA MEYER Age: 82 : 1935 Gender: M Exam Date: 08/31/2017 18:54 Exam Location: ER Ht (in): 64 Wt (lb): 247 BSA: 2.31 BP: 153 / 84 Ordering Physician: Taylor Wilburn Referring Physician: Taylor Wilburn Technologist: Moe Cristina RDCS Room Number: 10 Indications: CHEST PAIN Rhythm: Atrial fibrillation Technical Quality: technically difficult, Fair FINDINGS Left Ventricle Normal size left ventricle. Left ventricular wall thickness increased. Normal left ventricular ejection fraction estimated at 55-60%. Right Ventricle Right ventricle not well visualized. Right Atrium Right atrium not well visualized, grossly normal. Left Atrium Moderate left atrial dilatation. Mitral Valve Mild thickening/calcification of the anterior mitral valve leaflet. Mitral annular calcification. Aortic Valve Diffuse thickening of the aortic valve cusps with reduced excursion. Severe aortic stenosis. Tricuspid Valve Tricuspid valve not well visualized. Pulmonic Valve Pulmonic valve not well visualized. Pericardium No pericardial effusion. Great Vessels Normal size aortic root and proximal ascending aorta. CONCLUSIONS 1. This was a technically difficult and limited examination due to the patient's body habitus and clinical status. 2. Significant fibrocalcific degeneration is present in the aortic valve with evidence of severe aortic stenosis (PG 36 mmHg; MG 24 mmHg; DERRICK 0.9 cm2). 3. Thickening and calcification of the mitral leaflets is present with mild to moderate anular calcification and moderate left atrial enlargement. 4. There is no significant pericardial fluid present 5. The left ventricular chamber size and systolic function are normal. Mild to moderate concentric LVH is present. Complete wall motion assessment was not possible due to the quality of the images obtained. 6. The right heart structures were not optimally assessed. The RV systolic could not be accurately assessed on this examination. Lissette Rodriguez M.D. (Electronically Signed) Final Date: 01 September 2017 13:03 MEASUREMENTS (Male / Female) Normal Values 2D ECHO LV Diastolic Diameter PLAX 4.7 cm 4.2 - 5.9 / 3.9 - 5.3 cm LV Systolic Diameter PLAX 3.4 cm 2.1 - 4.0 cm LV Fractional Shortening PLAX 27.7 % 25 - 46 % LV Ejection Fraction 2D Teich 53.7 % IVS Diastolic Thickness 1.5 cm LVPW Diastolic Thickness 1.5 cm LV Relative Wall Thickness 0.6 LVOT Diameter 2.2 cm Aortic Root Diameter 2.4 cm LA Systolic Diameter LX 4.8 cm 3.0 - 4.0 / 2.7 - 3.8 cm LV Ejection Fraction MOD BP 67.3 % >= 55 % LV Cardiac Index MOD BP 2545.7 cm/minm LV Diastolic Length 4C 7.9 cm 6.9 - 10.3 cm LV Diastolic Area 4C 32.1 cm LV Diastolic Volume MOD 4C 107.0 cm LV Ejection Fraction MOD 4C 66.4 % LV Stroke Volume MOD 4C 71.0 cm LV Cardiac Index MOD 4C 2582.1 cm/minm LV Systolic Length 4C 6.3 cm LV Systolic Area 4C 16.3 cm LV Systolic Volume MOD 4C 36.0 cm LV Ejection Fraction MOD 2C 69.4 % LV Cardiac Index MOD 2C 2473.0 cm/minm LV Diastolic Volume 4C AL 111.0 cm 85 - 139 / 69 - 109 cm LV Systolic Volume 4C AL 36.0 cm LV Ejection Fraction 4C AL 67.6 % LV Stroke Volume 4C AL 75.0 cm LV Cardiac Index 4C AL 2727.2 cm/minm LV Ejection Fraction 2C AL 70.5 % LV Cardiac Index 2C AL 2573.7 cm/minm Ascending Aorta Diameter 3.2 cm DOPPLER AV Peak Velocity 299.0 cm/s AV Peak Gradient 35.8 mmHg AV Mean Velocity 228.0 cm/s AV Mean Gradient 24.0 mmHg AV Velocity Time Integral 73.7 cm LVOT Peak Velocity 82.0 cm/s LVOT Peak Gradient 2.7 mmHg LVOT Mean Velocity 44.0 cm/s LVOT Mean Gradient 1.0 mmHg LVOT Velocity Time Integral 14.5 cm LVOT Stroke Volume 55.1 cm LVOT Cardiac Index 2004.6 cm/minm AV Area Cont Eq vti 0.7 cm AV Area Cont Eq pk 1.0 cm Mitral E Point Velocity 131.0 cm/s MV Deceleration Time 289.0 ms PV Peak Velocity 65.2 cm/s PV Peak Gradient 1.7 mmHg
--- NOTE | 2017-09-01 13:16 | PN- Pulmonary ---
Subjective HPI/Critical Care Issues: Doing a little better No sig diuresis per pt slept well Objective Current Medications: Current Medications Sig/Peace Start time Last Medication Dose Route Stop Time Status Admin Acetaminophen 650 MG Q6P PRN 08/31 2200 AC PO Albuterol Sulfate 3 ML Q4P PRN 09/01 1100 AC INH Albuterol Sulfate 3 ML Q6P PRN 08/31 2215 DC INH Allopurinol 300 MG DAILY 09/01 1000 AC 09/01 PO 0858 Amlodipine Besylate 5 MG QPM 09/01 2200 AC PO Atorvastatin Calcium 40 MG 1700 09/01 1700 AC PO Brimonidine Tartrate 1 GTT QPM 09/01 2200 AC OPH Budesonide/ 2 PUF BID 09/01 1000 AC 09/01 Formoterol Fumarate INH 0859 Carvedilol 6.25 MG BID 09/01 2200 AC PO Carvedilol 6.25 MG BID 09/01 1000 DC 09/01 PO 0900 Colchicine 600 MCG DAILY 09/01 1000 AC 09/01 PO 0857 Digoxin 0.125 MG QPM 09/01 2200 AC PO Furosemide 20 MG DAILY 09/01 1000 AC 09/01 IV 0858 Furosemide 20 MG ONCE ONE 08/31 1745 DC 08/31 IV 08/31 1746 1740 Furosemide 0 .STK-MED ONE 08/31 172 DC IV Insulin Aspart 0 TIDAC 08/31 2230 AC 09/01 SC 1254 Ipratropium [place] 2.5 ML Q4P PRN 09/01 1100 AC INH Losartan Potassium 25 MG QAM 09/01 1000 AC 09/01 PO 0858 Methylprednisolone 40 MG DAILY 09/01 1000 AC 09/01 IV 0858 Methylprednisolone 0 .STK-MED ONE 08/31 1853 DC .ROUTE Methylprednisolone 125 MG ONCE ONE 08/31 1845 DC 08/31 IV 08/31 1846 1850 Nitroglycerin 0.4 MG ONCE ONE 08/31 1745 DC 08/31 SL 08/31 1746 1740 Nitroglycerin 0 .STK-MED ONE 08/31 1727 DC Patient Medication 1 ED ONE ONE 09/01 1245 DC Teaching ED 09/01 1246 Tamsulosin HCl 0.4 MG QPM 09/01 2200 AC PO Timolol Maleate 1 GTT BID 08/31 2215 AC 09/01 OPH 0858 Tramadol HCl 100 MG Q6P PRN 08/31 2214 AC PO Warfarin Sodium 2 MG COUMADIN 1700 ONE 09/01 1700 UNVr PO 09/01 1701 Vital Signs & I&O Last 24 Hrs of Vitals and I&O: Vital Signs Date Time Temp Pulse Resp B/P B/P Pulse O2 O2 Flow FiO2 Mean Ox Delivery Rate 09/01 1033 93 Nasal 3.0L Cannula 09/01 0900 64 164/90 09/01 0858 64 164/90 09/01 0846 Nasal 3.0L Cannula 09/01 0800 97 Nasal 4.0L Cannula 09/01 0634 97.6 66 20 164/90 95 Nasal Cannula 09/01 0049 56 96 09/01 0000 CPAP 08/31 2245 60 94 08/31 2229 98.0 63 22 154/82 94 Nasal 3.0L Cannula 08/31 2030 Nasal 4.0L Cannula 08/31 1941 Nasal 4.0L Cannula 08/31 1920 74 18 153/84 96 Nasal 4.0L Cannula 08/31 1731 94 Nasal 4.0L Cannula 08/31 1728 70 22 130/70 96 Nasal 4.0L Cannula Intake & Output 09/01 1600 09/01 0800 09/01 0000 Intake Total 240 350 Output Total 500 700 Balance -260 -350 Intake, Oral 240 350 Number 0 Bowel Movements Output, Urine 500 700 Patient 234 lb Weight Weight Bed scale Measurement Method Laboratory Tests 09/01 09/01 09/01 1302 0632 0030 Chemistry Sodium (137 - 145 mmol/L) Cancelled 143 Potassium (3.5 - 5.1 mmol/L) Cancelled 4.6 Chloride (98 - 107 mmol/L) Cancelled 99 Carbon Dioxide (22 - 30 mmol/L) Cancelled 28 Anion Gap (5 - 16) Cancelled 16 BUN (9 - 20 mg/dL) Cancelled 33 H Creatinine (0.7 - 1.2 mg/dL) Cancelled 1.5 H Estimated GFR (>60 ml/min) 45 L BUN/Creatinine Ratio (7 - 25 %) Cancelled 22.0 Phosphorus (2.5 - 4.5 mg/dL) Pending Magnesium (1.6 - 2.3 mg/dL) Pending Troponin I (<0.11 ng/ml) 0.04 0.04 Coagulation PT (9.4 - 12.5 SEC) 32.5 H INR (0.90 - 1.17) 2.95 H Hematology CBC w Diff NO MAN DIFF REQ WBC (4.8 - 10.8 /CUMM) 9.9 RBC (4.70 - 6.10 /CUMM) 4.76 Hgb (14.0 - 18.0 G/DL) 13.8 L Hct (42 - 52 %) 42.2 MCV (80.0 - 94.0 FL) 88.7 MCH (27.0 - 31.0 PG) 29.1 MCHC (33.0 - 37.0 G/DL) 32.8 L RDW (11.5 - 14.5 %) 14.0 Plt Count (130 - 400 /CUMM) 173 MPV (7.4 - 10.4 FL) 10.4 Gran % (42.2 - 75.2 %) 93.0 H Lymphocytes % (20.5 - 51.1 %) 6.4 L Monocytes % (1.7 - 9.3 %) 0.5 L Eosinophils % (0 - 5 %) 0 Basophils % (0.0 - 2.0 %) 0.1 Absolute Granulocytes (1.4 - 6.5 /CUMM) 9.2 H Absolute Lymphocytes (1.2 - 3.4 /CUMM) 0.6 L Absolute Monocytes (0.10 - 0.60 /CUMM) 0.1 Absolute Eosinophils (0.0 - 0.7 /CUMM) 0 Absolute Basophils (0.0 - 0.2 /CUMM) 0 08/31 08/31 1742 1728 Blood Gas pH (7.35 - 7.45 PH) 7.32 L pCO2 (35 - 45 TORR) 52 H pO2 (80 - 100 TORR) 98 HCO3 (21 - 28 MEQ/L) 28 ABG O2 Sat (Measured) (>96.0 %) 97.0 Carboxyhemoglobin (1.5 - 5.0 %) 0.8 L O2 Concentration % 4L O2 Delivery Method NC Chemistry Sodium (137 - 145 mmol/L) 141 Potassium (3.5 - 5.1 mmol/L) 4.3 Chloride (98 - 107 mmol/L) 98 Carbon Dioxide (22 - 30 mmol/L) 31 H Anion Gap (5 - 16) 12 BUN (9 - 20 mg/dL) 33 H Creatinine (0.7 - 1.2 mg/dL) 1.5 H Estimated GFR (>60 ml/min) 45 L BUN/Creatinine Ratio (7 - 25 %) 22.0 Glucose (65 - 99 mg/dL) 144 H Calcium (8.4 - 10.2 mg/dL) 9.4 Total Bilirubin (0.2 - 1.3 mg/dL) 0.5 AST (17 - 59 U/L) 24 ALT (21 - 72 U/L) 27 Alkaline Phosphatase (< 127 U/L) 122 Troponin I (<0.11 ng/ml) 0.03 Qvt-D-Ermxnuaesqt Pept (<125 pg/mL) 1870 H Total Protein (6.3 - 8.2 g/dL) 7.1 Albumin (3.5 - 5.0 g/dL) 3.8 Globulin (1.9 - 4.2 gm/dL) 3.3 Albumin/Globulin Ratio (1.1 - 2.2 %) 1.2 Coagulation PT (9.4 - 12.5 SEC) 28.6 H INR (0.90 - 1.17) 2.60 H APTT (25 - 37 SEC) 45 H Hematology CBC w Diff NO MAN DIFF REQ WBC (4.8 - 10.8 /CUMM) 14.3 H RBC (4.70 - 6.10 /CUMM) 5.19 Hgb (14.0 - 18.0 G/DL) 15.0 Hct (42 - 52 %) 46.3 MCV (80.0 - 94.0 FL) 89.3 MCH (27.0 - 31.0 PG) 28.8 MCHC (33.0 - 37.0 G/DL) 32.3 L RDW (11.5 - 14.5 %) 14.1 Plt Count (130 - 400 /CUMM) 195 MPV (7.4 - 10.4 FL) 9.8 Gran % (42.2 - 75.2 %) 79.2 H Lymphocytes % (20.5 - 51.1 %) 10.3 L Monocytes % (1.7 - 9.3 %) 8.0 Eosinophils % (0 - 5 %) 2.2 Basophils % (0.0 - 2.0 %) 0.3 Absolute Granulocytes (1.4 - 6.5 /CUMM) 11.3 H Absolute Lymphocytes (1.2 - 3.4 /CUMM) 1.5 Absolute Monocytes (0.10 - 0.60 /CUMM) 1.1 H Absolute Eosinophils (0.0 - 0.7 /CUMM) 0.3 Absolute Basophils (0.0 - 0.2 /CUMM) 0 Miscellaneous Phlebotomy Draw Site RIGHT RADIAL Toxicology Digoxin (0.8 - 2.0 ng/mL) 1.3 Impression/Plan Impression/Plan Impression/Plan: General Appearance Alert, Oriented X3, Cooperative, No Acute Distress Skin No Rashes HEENT Atraumatic, PERRLA, EOMI, Mucous Membr. moist/pink Neck Supple, No JVD, No thryomegaly, +2 Carotid Pulse wo Bruit Lymphatic Cervical nl Cardiovascular Normal S1, Normal S2, IRREGULAR RYTHM, SYSTOLIC MURMUR PRESENT LungsMild wheezing and crackles Normal Air Movement Abdomen Normal Bowel Sounds, Soft, No Tenderness, No Hepatospenomegaly, No Masses Neurological Normal Gait, Normal Speech, Strength at 5/5 X4 Ext, Normal Tone, Sensation Intact, Cranial Nerves 3-12 NL Extremities No Clubbing, No Cyanosis, 1 plus Edema, Normal Pulses IMPRESSION Pt with Nonischemic CM with reduced EF, PAFIB on anticoag ?eloquis, HTN, Hyperlipedemia, AFIA on cpap, Sig djd, Morbid obesity, COPD with sig asthmatic component, GERD with sig hiatal hernia, Ventral hernia, pvd, gout history, PLM, On and off abd discomfort, aortic stenosis mild to mod, Chronic hoarse voice with vc paralysis (well compensated with no sig aspiration) (idiopathic) now comes in with * Lower left chest discomfort with acute dyspnea with hypoxia with elevated BNP with prob mild acute diastolic and systolic chf with Aortic stenosis * Chronic hypercarbic resp insuff due to AFIA and copd now with acute hypercarbic and hypoxic resp failure, - improved * PT does have mod persistant asthma with mild wheezing with no fever or sputum or cough * Chest / abd pain upon admission now better * CKD * AFib on anticoag * Aortic stenosis mod to severe echo pending * NICM with low ef with mild chf * AFIA with pulm htn * PEdal edema mild due to amlodapine * Sig HTN at times with pulm edema when his bp is more than 180 * VC paralysis chronic, with mild stridor * DM REC Lasix IV and diuresis per cardio Wean oxygen and keep sat at 90 BP control with amlodapine, coreg and cozaar low dose COnt warfarin DC steroids cont Other out pt meds Nebs duo neb prn Symbicort bid 2 puff Hold dig for a day or two CT abd to eval rt upper abd pain (without contrast, pt allergic to dye) CPAP at hs ECHO pending Cardio eval Will follow closely
[2017-09-01 14:38] VITALS: BP 138/74
[2017-09-01 21:15] VITALS: BP 150/78
--- NOTE | 2017-09-01 22:04 | CT SCAN REPORT ---
EXAMINATION: CT ABDOMEN AND PELVIS WITHOUT CONTRAST CLINICAL INFORMATION: Pain COMPARISON: 10/09/2013 TECHNIQUE: Multidetector volumetric imaging was performed from the superior aspect of the liver through the pubic symphysis. Sagittal and coronal reformatted images were obtained on the technologist's workstation. Lung bases are grossly clear. Upper abdomen Liver and spleen are within normal limits. Patient is status post cholecystectomy. Area the pancreas is unremarkable. The adrenal glands are within normal limits. Numerous low-density areas in the kidneys may well represent evolving cysts. Recommend ultrasound to confirm. There is no free fluid here. The bowel pattern is felt to be within normal limits. Prominent stomach with contents. There is no bulky adenopathy. Abdominal wall weakness in the upper abdomen with some omental fat. Cannot completely exclude an element of herniation here containing omental fat given the appearance. Aorta is normal in caliber. Calcified. In the pelvis no free fluid. Central calcifications within the prostate. There is evidence of diverticula disease but no evidence for diverticulitis here. There is no bulky adenopathy. The appendix is normal Degenerative change in the lumbar spine. Possible spondylolysis at L5-S1. Mild listhesis. IMPRESSION: No acute finding in the abdomen pelvis. The bowel pattern is overall nonobstructing. Mildly prominent stomach containing contents. In the anterior abdominal wall the upper abdomen appears be some weakness of the anterior abdominal wall. Superimposed herniation of omental fat cannot be excluded. Numerous areas of low density in the kidneys may represent cysts. Ultrasound recommended to confirm. Diverticulosis but no convincing evidence for diverticulitis. Coronary calcifications are noted.
--- NOTE | 2017-09-02 07:13 | PN- Housestaff ---
Subjective Follow-up For: 1. ?? CHF - 2. Aortic Stenosis 3. COPD Exacerbation 4. AFIA on CPAP at night 5. PVD 6. Chronic medical conditions Tele-Events Since Last Visit: A. fib/flutter, heart rate 5447, 0.1, PVCs Subjective: Patient was seen and examined at bedside, afebrile, denies any complaints, no overnight events, pulse ox 94 on room air Review of Systems Constitutional: Reports: see HPI. Objective Last 24 Hrs of Vital Signs/I&O Vital Signs Date Time Temp Pulse Resp B/P B/P Pulse O2 O2 Flow FiO2 Mean Ox Delivery Rate 09/02 09 56 130/82 09/02 09 56 130/80 09/02 0630 97.3 20 94 09/02 0042 66 96 09/01 2114 94 Nasal 4.0L Cannula 09/01 2114 97.7 64 18 150/78 94 Nasal 4.0L Cannula 09/01 2108 64 150/78 09/01 2108 64 150/78 09/01 2108 64 150/78 09/02 2047 97 Nasal 3.0L Cannula 09/01 2046 62 97 09/01 1438 97.5 54 18 138/74 98 Intake & Output 09/02 1600 09/02 0800 09/02 0000 Intake Total Output Total 225 Balance -225 Number 1 1 Bowel Movements Output, Urine 225 Physical Exam General Appearance: Alert, Oriented X3, Cooperative, No Acute Distress HEENT: Atraumatic, PERRLA, EOMI, Mucous Membr. moist/pink Cardiovascular: Normal S1, Normal S2, No Murmurs Lungs: Clear to Auscultation Abdomen: Normal Bowel Sounds, Soft, No Tenderness Extremities: 1+PITTING EDEMA Vascular: Normal Pulses Assessment/Plan Assessment: 82-year-old male with past medical history significant for paroxysmal atrial fibrillation on digoxin, Coumadin, hypertension, hyperlipidemia, chronic kidney disease, gout, osteoarthritis, COPD, asthma, not on home oxygen, recently diagnosed ? CHF planning to start Lasix for worsening lower extremity swelling, type 2 diabetes mellitus, BPH, obstructive sleep apnea, using CPAP, nonischemic cardiomyopathy, carotid artery stenosis, GERD, pulmonary hypertension, nontoxic goiter presented to the emergency department for worsening shortness of breath for few hours. 1. Acute on chronic respiratory insufficiency from COPD exacerbation, AFIA * Continue to monitor on telemetry * Monitor vitals every shift * Provide supplemental oxygen * Continue CPAP at nighttime * Monitor for fever, leukocytosis trend * Solu-Medrol was discontinued yesterday * TRC nebs * Symbicort 2 puffs daily * Follow-up sputum cultures 2. Bilateral lower extremity swelling/questionable CHF * IV Lasix 20 daily * Ins and outs * Daily weights * cardio recommendations appreciated * echocardiogram showed left ventricular ejection fraction 53.7%, fibrocalcific degeneration of the aortic valve, severe aortic stenosis with DERRICK 0.9, left ventricular hypertrophy * Serial troponin and EKG-ruled out ACS * Monitor BUN, creatinine * Lower extremity Doppler was done given his bilateral lower extremity swelling and pain-ruled out deep vein thrombosis AFIA continue CPAP A. fib digoxin held for 12 days bradycardia INR is supratherapeutic today (3.46) hold warfarin today , patient usually takes Coumadin 4 mg on Tuesday, Tuesday, Tuesday, and 2 mg on Tuesday, Tuesday, , Tuesday Diabetes mellitus insulin sliding scale ordered. hold metformin Hypertension continue amlodipine, carvedilol, losartan Hyperlipidemia continue simvastatin Chronic kidney disease with creatinine 1.6 Gout continue allopurinol and colchicine BPH continue tamsulosin Patient is full code Regular diet DVT prophylaxis Coumadin Problem List: 1. CHF (congestive heart failure) 2. Dyspnea 3. COPD 4. ATRIAL FIBRILATION Pain Ratin Pain Location: N/A Pain Goal: Remain pain free Pain Plan: PATHWAY Tomorrow's Labs & Rationales: CBC BEP INR
[2017-09-02 08:05] LABS: ABSOLUTE BASOPHIL COUNT 0 /CUMM (0.0-0.2); ABSOLUTE EOSINOPHIL COUNT 0 /CUMM (0.0-0.7); ABSOLUTE GRANULOCYTE CT 14.5 /CUMM (1.4-6.5); ABSOLUTE LYMPH COUNT 0.9 /CUMM (1.2-3.4); ABSOLUTE MONOCYTE COUNT 0.9 /CUMM (0.10-0.60); BASOPHIL % 0 % (0.0-2.0); EOSINOPHIL % 0 % (0-5); HEMATOCRIT 41.7 % (42-52); MEAN CORPUSCULAR HGB 29.3 PG (27.0-31.0); MEAN CORPUSCULAR HGB CONC 32.6 G/DL (33.0-37.0); MEAN CORPUSCULAR VOLUME 89.7 FL (80.0-94.0); MEAN PLATELET VOLUME 10.2 FL (7.4-10.4); RBC DISTRIBUTION WIDTH 13.9 % (11.5-14.5); RED BLOOD CELL CT 4.64 /CUMM (4.70-6.10)
[2017-09-02 08:23] LABS: PT 38.2 SEC (9.4-12.5)
[2017-09-02 08:45] LABS: GRANULOCYTE % 89.1 % (42.2-75.2); PLATELET COUNT 172 /CUMM (130-400); WHITE BLOOD CELL COUNT 16.3 /CUMM (4.8-10.8)
[2017-09-02] MEDS ORDERED: LASIX20 M1 PO ×2 (10:50→14:24)
--- NOTE | 2017-09-02 10:53 | Patient Discharge Instructions ---
Discharge Instructions General Discharge Information You were seen/treated for: 1. Possible CHF exacerbation 2. Aortic Stenosis 3. Possible COPD Exacerbation 4. AFIA on CPAP at night 5. PVD 6. Chronic medical conditions Special Instructions: 2please follow-up with your ocean freight manager in 1 week of discharge 3-please hold Coumadin tonight for supratherapeutic INR 4please check INR in 2 days of discharge and dose Coumadin accordingly Diet Continue normal diet: Yes Activity Full Activity/No Limits: Yes Acute Coronary Syndrome Inclusion Criteria At DC or during hospital stay patient has or had the following: ACS DIAGNOSIS No Discharge Core Measures Meds if any: Prescribed or Continued at Discharge Meds if any: NOT Prescribed or Continued at Discharge Congestive Heart Failure Inclusion Criteria At DC or during hospital stay patient has or had the following: CHF DIAGNOSIS No Discharge Core Measures Meds if any: Prescribed or Continued at Discharge Meds if any: NOT Prescribed or Continued at Discharge Cerebrovascular accident Inclusion Criteria At DC or during hospital stay patient has or had the following: CVA/TIA Diagnosis No Discharge Core Measures Meds if any: Prescribed or Continued at Discharge Meds if any: NOT Prescribed or Continued at Discharge Venous thromboembolism Inclusion Criteria VTE Diagnosis No VTE Type NONE VTE Confirmed by (Test) NONE Discharge Core Measures - Per Current guidelines, there needs to be overlap - treatment for the first 5 days of Warfarin therapy. - If discharged on Warfarin prior to 5 days of - overlap therapy, the patient will need to be - assessed for post discharge needs including - *Post discharge parental anticoagulation - *Warfarin and/or parental anticoagulation education - *Follow up date to check INR post discharge At least 5 days overlap therapy as Inpatient No Meds if any: Prescribed or Continued at Discharge Note: Overlap Therapy is Warfarin and Anticoagulant Meds if any: NOT Prescribed or Continued at Discharge
--- NOTE | 2017-09-02 11:24 | PN- Cardiology ---
Kimani CANTOR,Tavo 09/02/17 1124: Subjective Subjective: Seen and examined while seated comfortably in bed. He reports his breathing is much better. Denies any cp/palpitations. No acute o/n telemetry event reported. Objective Vital Signs and I&Os Vital Signs Date Time Temp Pulse Resp B/P B/P Pulse O2 O2 Flow FiO2 Mean Ox Delivery Rate 09/02 1508 97.1 76 20 132/80 95 09/02 1417 94 Room Air Room Air 09/02 0911 56 130/82 09/02 0911 56 130/80 09/02 0630 97.3 20 94 09/02 0042 66 96 09/01 2114 94 Nasal 4.0L Cannula 09/01 2114 97.7 64 18 150/78 94 Nasal 4.0L Cannula 09/01 2108 64 150/78 09/01 2108 64 150/78 09/01 2108 64 150/78 09/02 2047 97 Nasal 3.0L Cannula 09/01 2046 62 97 Intake & Output 09/02 1600 09/02 0800 09/02 0000 09/01 1600 09/01 0800 09/01 0000 Intake Total 510 420 240 350 Output Total 550 225 650 500 700 Balance -40 -225 -230 -260 -350 Intake, IV 10 20 Intake, Oral 500 400 240 350 Number 1 1 0 Bowel Movements Output, Urine 550 225 650 500 700 Patient 106.197 kg Weight Weight Bed scale Measurement Method Physical Exam: General Appearance: Alert, Oriented X3, Cooperative, No Acute Distress HEENT: Atraumatic, PERRLA, EOMI, Mucous Membr. moist/pink Cardiovascular: Normal S1, Normal S2, No Murmurs Lungs: Clear to Auscultation Abdomen: Normal Bowel Sounds, Soft, No Tenderness Extremities: 1+PITTING EDEMA Vascular: Normal Pulses Current Medications: Current Medications Sig/Peace Start time Last Medication Dose Route Stop Time Status Admin Acetaminophen 650 MG Q6P PRN 08/31 2199 AC PO Albuterol Sulfate 3 ML Q4P PRN 09/01 1100 AC INH Allopurinol 300 MG DAILY 09/01 1000 AC 09/02 PO 0910 Amlodipine Besylate 5 MG QPM 09/010 AC 09/01 PO 2109 Atorvastatin Calcium 40 MG 1700 09/01 1700 AC 09/01 PO 1744 Brimonidine Tartrate 1 GTT QPM 09/01 2199 AC 09/01 OPH 2107 Budesonide/ 2 PUF BID 09/01 1000 AC 09/02 Formoterol Fumarate INH 0912 Carvedilol 6.25 MG BID 09/01 2200 AC 09/02 PO 0911 Colchicine 600 MCG DAILY 09/01 1000 AC 09/02 PO 0911 Furosemide 20 MG DAILY 09/01 1000 AC 09/02 IV 0912 Insulin Aspart 0 TIDAC 08/31 2230 AC 09/02 SC 1316 Ipratropium [place] 2.5 ML Q4P PRN 09/01 1100 AC INH Losartan Potassium 25 MG QAM 09/01 1000 AC 09/02 PO 0911 Patient Medication 1 ED ONE ONE 09/02 1545 DC Teaching ED 09/02 1546 Tamsulosin HCl 0.4 MG QPM 09/01 2200 AC 09/01 PO 2109 Timolol Maleate 1 GTT BID 08/31 2215 AC 09/02 OPH 0912 Tramadol HCl 100 MG Q6P PRN 08/31 221 AC PO Warfarin Sodium 2 MG COUMADIN 1700 ONE 09/01 1700 DC 09/01 PO 09/01 1701 1743 Results Last 48 Hrs of Labs/Mics: Laboratory Tests 09/02/17 0614: Anion Gap 11, Estimated GFR 42 L, BUN/Creatinine Ratio 30.6 H, PT 38.2 H, INR 3.46 H, CBC w Diff NO MAN DIFF REQ, RBC 4.64 L, MCV 89.7, MCH 29.3, MCHC 32.6 L, RDW 13.9, MPV 10.2, Gran % 89.1 H, Lymphocytes % 5.2 L, Monocytes % 5.7, Eosinophils % 0, Basophils % 0, Absolute Granulocytes 14.5 H, Absolute Lymphocytes 0.9 L, Absolute Monocytes 0.9 H, Absolute Eosinophils 0, Absolute Basophils 0 09/01/17 1302: Sodium Cancelled, Potassium Cancelled, Chloride Cancelled, Carbon Dioxide Cancelled, Anion Gap Cancelled, BUN Cancelled, Creatinine Cancelled, BUN/ Creatinine Ratio Cancelled 09/01/17 0632: Anion Gap 16, Estimated GFR 45 L, BUN/Creatinine Ratio 22.0, Troponin I 0.04, PT 32.5 H, INR 2.95 H, CBC w Diff NO MAN DIFF REQ, RBC 4.76, MCV 88.7, MCH 29.1, MCHC 32.8 L, RDW 14.0, MPV 10.4, Gran % 93.0 H, Lymphocytes % 6.4 L, Monocytes % 0.5 L, Eosinophils % 0, Basophils % 0.1, Absolute Granulocytes 9.2 H, Absolute Lymphocytes 0.6 L, Absolute Monocytes 0.1, Absolute Eosinophils 0, Absolute Basophils 0 09/01/17 0030: Phosphorus 4.0, Magnesium 1.4 L, Troponin I 0.04 08/31/17 1742: Anion Gap 12, Estimated GFR 45 L, BUN/Creatinine Ratio 22.0, Glucose 144 H, Calcium 9.4, Total Bilirubin 0.5, AST 24, ALT 27, Alkaline Phosphatase 122, Troponin I 0.03, Djy-S-Dttbzdsteox Pept 1870 H, Total Protein 7.1, Albumin 3.8, Globulin 3.3, Albumin/Globulin Ratio 1.2, PT 28.6 H, INR 2.60 H, APTT 45 H, CBC w Diff NO MAN DIFF REQ, RBC 5.19, MCV 89.3, MCH 28.8, MCHC 32.3 L, RDW 14.1 , MPV 9.8, Gran % 79.2 H, Lymphocytes % 10.3 L, Monocytes % 8.0, Eosinophils % 2.2, Basophils % 0.3, Absolute Granulocytes 11.3 H, Absolute Lymphocytes 1.5, Absolute Monocytes 1.1 H, Absolute Eosinophils 0.3, Absolute Basophils 0, Digoxin 1.3 08/31/17 1728: pH 7.32 L, pCO2 52 H, pO2 98, HCO3 28, ABG O2 Sat (Measured) 97.0, Carboxyhemoglobin 0.8 L, O2 Concentration % 4L, O2 Delivery Method NC, Phlebotomy Draw Site RIGHT RADIAL Assessment/Plan Assessment/Plan 1. Hypertension 2. Atrial fibrillation 3. moderate aortic stenosis 4. Acute COPD exacerbation Plan * No improvement of creatinine with furosemide use, if decision is made to continue furosemide, consider low dose as patient is not in acute decompensated heart failure * Restart Digoxin as heart rate has improved * Continue all other cardiac meds Continue telemetry? No Problem List: 1. Dyspnea Michael CANTOR,Chandrakant Davies 09/02/17 1750: Assessment/Plan Assessment/Plan Attending addendum: Patient seen and examined and case reviewed with housestaff; patient and family and Dr. Flower. Plan to discharge home today. COntinue digoxin and 0.125 mg every other day with followup Digoxin level in one week. COntinue other meds Continue lasix and 20 mg every other day with followup labs later this week FOllowup with me in 1-2 weeks.
--- NOTE | 2017-09-02 11:34 | Discharge Summary ---
See Addendum Visit Information Visit Dates Admission Date: 08/31/17 Discharge Date: 09/02/2017 Hospital Course Course Attending Physician: Quique Flower MD Primary Care Physician: Quique Flower MD Hospital Course: Mr. Song is an 82-year-old gentleman with past medical history significant for atrial fibrillation, aortic stenosis, hypertension, hyperlipidemia, COPD on BiPAP at night, gout, osteoarthritis, diabetes and idiopathic cardiomyopathy who was brought in by EMS for severe shortness of breath. Vitals on admission Afebrile, heart rate 74, respiratory rate 18, blood pressure 152/84, saturating at 96 on room air Labs Leukocytosis 14.3, hemoglobin 15, hematocrit 46, platelets 195 BUN 33 and creatinine 1.5 Chest x-ray no acute cardiopulmonary findings LFT and troponin neg CXR Results FINDINGS: There is persistent prominence of the central pulmonary vasculature that could reflect chronic pulmonary hypertension. No overt pulmonary edema or focal airspace consolidation is identified. Moderate cardiomegaly is unchanged. There are no large pleural effusions. There is persistent elevation of the right hemidiaphragm. IMPRESSION: No radiographic evidence of an acute cardiopulmonary process. Echo: 1. This was a technically difficult and limited examination due to the patient's body habitus and clinical status. 2. Significant fibrocalcific degeneration is present in the aortic valve with evidence of severe aortic stenosis (PG 36 mmHg; MG 24 mmHg; DERRICK 0.9 cm2). 3. Thickening and calcification of the mitral leaflets is present with mild to moderate anular calcification and moderate left atrial enlargement. 4. There is no significant pericardial fluid present 5. The left ventricular chamber size and systolic function are normal. Mild to moderate concentric LVH is present. Complete wall motion assessment was not possible due to the quality of the images obtained. 6. The right heart structures were not optimally assessed. The RV systolic could not be accurately assessed on this examination. Abdomen/Pelvic CT: No acute finding in the abdomen pelvis. The bowel pattern is overall nonobstructing. Mildly prominent stomach containing contents. In the anterior abdominal wall the upper abdomen appears be some weakness of the anterior abdominal wall. Superimposed herniation of omental fat cannot be excluded. Numerous areas of low density in the kidneys may represent cysts. Ultrasound recommended to confirm. Diverticulosis but no convincing evidence for diverticulitis. Coronary calcifications are noted. Other Results US-EXT BILAT VENOUS DOPPLER IMPRESSION: Normal triplex scan without evidence of deep venous thrombosis involving the lower extremities. He was admitted to telemetry for treatment of the followin. Acute on chronic respiratory insufficiency from COPD exacerbation, AFIA * Continued to monitor on telemetry * Monitored vitals every shift * Provided supplemental oxygen which the patient was able to be weaned off for discharge * Continued CPAP at nighttime * Monitor for fever, leukocytosis trend * Solu-Medrol was initially started for 2 days and then was discontinued * TRC nebs * Symbicort 2 puffs daily 2. Bilateral lower extremity swelling/questionable CHF * Treated with IV Lasix 20 daily, on discharge it was switched to p.o. Lasix 20 mg daily * Ins and outs closely monitored * Daily weights * cardio recommendations appreciated * echocardiogram showed left ventricular ejection fraction 53.7%, fibrocalcific degeneration of the aortic valve, severe aortic stenosis with DERRICK 0.9, left ventricular hypertrophy * Serial troponin and EKG-ruled out ACS * Monitored BUN, creatinine * Lower extremity Doppler was done given his bilateral lower extremity swelling and pain-ruled out deep vein thrombosis AFIA continued CPAP A. fib digoxin was held for 2 days bradycardia, on discharge digoxin dose was a change to every other day, patient was advised to follow-up with his clinical laboratory technician in 1 week of discharge INR was supratherapeutic on the day of discharge of 0 09/02 (3.46) patient was advised to hold the Coumadin for the date of discharge, to continue his home dose next day and is to follow up on his INR in 2 days of discharge, patient usually takes Coumadin 4 mg on Tuesday, Tuesday, Tuesday, and 2 mg on Tuesday, Tuesday, , Tuesday Diabetes mellitus insulin sliding scale ordered. held metformin Hypertension continue amlodipine, carvedilol, losartan Hyperlipidemia continue simvastatin Chronic kidney disease with creatinine 1.6 Gout continue allopurinol and colchicine BPH continue tamsulosin Patient is full code Regular diet DVT prophylaxis Coumadin Allergies: Coded Allergies: Iodinated Contrast- Oral and IV Dye (IODINATED CONTRAST MEDIA - ORAL AND) (HIVES , DYSPNEA 06/01/16) ampicillin (From UNASYN) (RASH 06/01/16) sulbactam (From UNASYN) (RASH 06/01/16) Disposition Summary Disposition Principal Diagnosis: CHF exacerbation Additional Diagnosis: COPD exacerbation Discharge Disposition: home or self care Discharge Instructions General Discharge Information Code Status: Full Code Patient's Diet: Heart healthy diet Patient's Activity: As tolerated Follow-Up Instructions/Appts: 2please follow-up with your clinical laboratory technician in 1 week of discharge 3-please hold Coumadin tonight for supratherapeutic INR 4please check INR in 2 days of discharge and dose Coumadin accordingly Medications at Discharge Discharge Medications: Stop taking the following medications: Furosemide (Lasix) (Unknown Strength) TABLET ORAL 2 times per week Continue taking these medications: Carvedilol (Carvedilol) 12.5 MG TABLET 0.5 Tablet ORAL TWICE DAILY Comments: Last Taken:09/02/17 Time:910 Tramadol HCl (Tramadol HCl) 50 MG TABLET 2 Tablet ORAL EVERY SIX HOURS NEEDED as needed for PAIN Comments: NOT GIVEN Allopurinol (Allopurinol) 300 MG TABLET 1 Tablet ORAL as needed for GOUT Comments: Last Taken:09/02/17 Time:909 Colchicine (Colchicine) 0.6 MG TABLET 1 Tablet ORAL as needed for GOUT Comments: Last Taken:09/02/17 Time:910 Tamsulosin HCl (Flomax) 0.4 MG CAP.ER.24H 1 Capsule ORAL Every night Comments: Last Taken:09/01/17 Time:2108 Losartan Potassium (Losartan Potassium) 25 MG TABLET 1 Tablet ORAL Every Morning Qty = 30 Comments: Last Taken:09/02/17 Time:910 Metformin HCl (Metformin HCl) 500 MG TABLET 1 Tablet ORAL TWICE DAILY Comments: NOT GIVEN Albuterol Sulfate (Albuterol Sulfate) 2.5 MG/0.5 ML VIAL.NEB 1 Vial Inhale Solution as needed for COPD/ASTHMA Comments: NOT GIVEN Budesonide/Formoterol Fumarate (Symbicort 160-4.5 Mcg Inhaler) (Unknown Strength ) HFA.AER.AD Unknown Dose Inhale through mouth as needed for COPD/ASTHMA Comments: NOT GIVEN Simvastatin (Simvastatin*) 40 MG TABLET 1 Tablet ORAL Every night Comments: NOT GIVEN Amlodipine Besylate (Amlodipine Besylate) 5 MG TABLET 1 Tablet ORAL Every night Comments: Last Taken:09/01/17 Time:2108 Timolol (Betimol) 0.5 % DROPS 1 Drop Both Eyes Every night Comments: NOT GIVEN Brimonidine Tartrate (Brimonidine Tartrate) 0.2 % DROPS 2 DROP Both Eyes Every night Comments: Last Taken:09/02/17 Time:09 Calcium (Elemental-Fr Calcarb) (Calcium Carbonate) (Unknown Strength) TABLET Unknown Dose ORAL as needed for GI Comments: NOT GIVEN Lutein (Lutein) 20 MG CAPSULE 1 Capsule ORAL DAILY Comments: NOT GIVEN Cyanocobalamin (Vitamin B-12) 1,000 MCG TABLET 1 Tablet ORAL DAILY Ascorbate Calcium (Vitamin C) 500 MG TABLET 1 Tablet ORAL DAILY Comments: NOT GIVEN Cholecalciferol (Vitamin D3) (Vitamin D) 1,000 UNIT TABLET 1 Tablet ORAL DAILY Multiple Vitamin (Multivitamins) 1 EACH TABLET 1 Tablet ORAL DAILY Comments: NOT GIVEN [place]-3 Fatty Acids ([place]-3) 1,000 MG CAPSULE 1 Capsule ORAL DAILY Comments: NOT GIVEN Mometasone/Formoterol (Dulera 100 Mcg/5 Mcg Inhaler) 100 MCG-5 MCG/ACTUATION HFA.AER.AD 1-2 Puff Inhale through mouth As Directed Comments: NOT GIVEN Warfarin Sodium (Warfarin Sodium) 4 MG TABLET 1 Tablet ORAL TUESDAY, TUESDAY AND TUESDAY Comments: NOT GIVEN Warfarin Sodium (Coumadin) 2 MG TABLET 1 [facility]t [facility] Comments: Last Taken:09/01/17 Time:1743 Start taking the following new medications: Furosemide (Lasix) 20 MG TABLET 1 Tablet ORAL DAILY Qty = 30 No Refills Instructions: . Comments: Last Taken:09/02/17 Time:09 The following medications have been changed: Old: Digoxin (Digoxin) 125 MCG TABLET 1 Tablet ORAL EVERY 48 HOURS (Every 2 days) Qty = 30 New: Digoxin (Digoxin) 125 MCG TABLET 1 Tablet ORAL EVERY 48 HOURS (Every 2 days) Qty = 30 Instructions: . Comments: NOT GIVEN Copies To: Quiqeu Flower MD Attending MD Review Statement Documenting Attending: Quique Flower MD Other Findings: seen and examined independently agree with above
[2017-09-02] MEDS ORDERED: DIGOXIN125 MCG PO (14:24)
[2017-09-02 15:08] VITALS: BP 132/80
== END 2017-09-02 17:25 | DRG 291 ==
LOC: ERH 17:17 → 1NO 18:41 → ERHI 18:41 → ENRESERV 19:23 → ENTRNSPT 19:41 → EDTRNSPTSTS 19:55 → 1NO 20:15 → CMPTRNSPT 20:21 → 1NO 09-01 16:38
PROVIDERS: Emergency Medicine; Hospitalist; Student in an Organized Health Care Education/Training Program
PROC: 5A09357 Assistance with Respiratory Ventilation, Less than 24 Consecutive Hours, Continuous Positive Airway Pressure (ICD-10-PCS; principal; 2017-08-31)
DX: I13.0 Hypertensive heart and chronic kidney disease with heart failure and stage 1 through stage 4 chronic kidney disease, or unspecified chronic kidney disease (principal); J96.21 Acute and chronic respiratory failure with hypoxia; I47.2 Ventricular tachycardia; E11.22 Type 2 diabetes mellitus with diabetic chronic kidney disease; I27.20 Pulmonary hypertension, unspecified; E66.01 Morbid (severe) obesity due to excess calories; J96.22 Acute and chronic respiratory failure with hypercapnia; I50.33 Acute on chronic diastolic (congestive) heart failure; Z68.41 Body mass index [BMI] 40.0-44.9, adult; J44.1 Chronic obstructive pulmonary disease with (acute) exacerbation; I42.9 Cardiomyopathy, unspecified; I48.0 Paroxysmal atrial fibrillation; J38.01 Paralysis of vocal cords and larynx, unilateral; Z79.01 Long term (current) use of anticoagulants; I35.0 Nonrheumatic aortic (valve) stenosis; I44.4 Left anterior fascicular block; I48.91 Unspecified atrial fibrillation; I73.9 Peripheral vascular disease, unspecified; N40.0 Benign prostatic hyperplasia without lower urinary tract symptoms; G47.33 Obstructive sleep apnea (adult) (pediatric); E04.2 Nontoxic multinodular goiter; L40.9 Psoriasis, unspecified; J45.40 Moderate persistent asthma, uncomplicated; H40.9 Unspecified glaucoma; E78.5 Hyperlipidemia, unspecified; M10.9 Gout, unspecified; K21.9 Gastro-esophageal reflux disease without esophagitis; K44.9 Diaphragmatic hernia without obstruction or gangrene; N18.9 Chronic kidney disease, unspecified; Z87.891 Personal history of nicotine dependence; Z88.1 Allergy status to other antibiotic agents; Z91.041 Radiographic dye allergy status; Z79.84 Long term (current) use of oral hypoglycemic drugs
CPT/HCPCS: 1NP; 36592; 71045; 74176; 82436; 93005; 93010; 93306; 93970; J1940; J2920; J2930; J3490